=== PATIENT | female | born 1955 | race Caucasian/White ===

== ENCOUNTER → 2017-07-02 11:33 | Outpatient (CLI) | payer MEDICARE, SELFPAY | PROVIDERS: PCP Physician Assistant; Visit Provider Physician Assistant | DX: R68.89 Other general symptoms and signs (principal) | CPT/HCPCS: 87275; 87276 ==

== ENCOUNTER 2017-07-07 15:39 | Observation (INO) ==
--- NOTE | 2017-07-07 16:34 | Emergency Department Note ---
[facility] [place] Disposition Clinical Impression: Pneumonia Qualifiers: Pneumonia type: due to unspecified organism Laterality: right Lung location: lower lobe of lung Qualified Code(s): J18.1 - Lobar pneumonia, unspecified organism Disposition: Admitted As Inpatient Condition on Discharge: Fair Referrals: Genia Luevano [Primary Care Provider] - Medical Decision Making - Jesús Inquiry Pt receiving controlled substance: No Vital Signs: 07/07/17 16:06 07/07/17 17:49 07/07/17 17:50 Temperature 98.7 F Temperature Source Oral Pulse Rate 82 81 Pulse Rate [Left Radial] 114 H Respiratory Rate 18 Blood Pressure [Right Arm] 133/85 Blood Pressure Mean [Right Arm] 101 02 Sat by Pulse Oximetry 97 Oxygen Delivery Method Room Air - Lab Data Lab results reviewed: Yes: I reviewed the patient's lab results. Lab Results 07/07/17 16:55: WBC 10.0, RBC 3.77 L, Hgb 12.5, Hct 34.0 L, MCV 90.2, MCH 33.3 H , MCHC 36.9 H, RDW 12.7, Plt Count 241, MPV 7.5, Neut % (Auto) 75.3, Lymph % ( Auto) 16.3, [place] % (Auto) 7.9, Eos % (Auto) 0.2, Baso % (Auto) 0.2, Neut # (Auto ) 7.5, Lymph # (Auto) 1.6, [place] # (Auto) 0.8, Eos # (Auto) 0.0, Baso # (Auto) 0.0 07/07/17 16:55: Sodium 135 L, Potassium 4.5, Chloride 98, Carbon Dioxide 27, Anion Gap 14.5, BUN 11, Creatinine 1.00, Estimated Creat Clear 70, Estimated GFR 56 L, Est GFR ( Amer) 68, Glucose 98, Calcium 9.7, Total Bilirubin 0.4, AST 24, ALT 33, Alkaline Phosphatase 196 H, Total Protein 8.0, Albumin 2.9 L, Globulin 5.1 H, Albumin/Globulin Ratio 0.6 L 07/07/17 16:55: Lactic Acid 1.2 07/07/17 16:55: Urine Color Dark yellow, Urine Appearance Turbid, Urine pH 5.5, Ur Specific [place] 1.025, Urine Protein 2+, Urine Glucose (UA) Negative, Urine Ketones Small, Urine Blood 3+, Urine Nitrate Negative, Urine Bilirubin 2+ A, Urine Urobilinogen 0.2, Ur Leukocyte Esterase Negative, Strep Scn Rapid Clinic Negative Result diagrams: 07/07/17 16:55 07/07/17 16:55 Orders (Tests/Meds): ED MEDICATIONS Discontinued Medications Generic Name Dose Route Start Last Admin Trade Name Freq PRN Reason Stop Dose Admin Albuterol/Ipratropium 3 ml 07/07/17 17:32 07/07/17 17:49 Duoneb 3ml Neb IH 07/07/17 17:33 3 ml ONCE ONE Administration ORDERS Category Date Time Status Blood Culture Stat Micro 07/07/17 16:55 Received Strep Screen Confirmation Stat Micro 07/07/17 16:55 Received - Radiology Data #1 Image(s): Chest Image Reviewed: Yes I reviewed the patient's radiology image, Yes I have reviewed radiologist's interpretation RLL pneumonia [facility] [place] HPI - General Stated complaint: fever for 8 days Time Seen by Provider: 07/07/17 16:20 Mode of Arrival: Family Vehicle Source of Information: Patient Limitations: No Limitations Description of Symptoms (Recalled from Triage Doc. by RN): PT STATES SHE HAS HAD FEVER FOR 8 DAYS,BODY ACHES, COUGH, NAUSEA. PT REPORTS SHE SEEN HER PCP ON SATURDAY FLU WAS NEGATIVE SHE WAS TOLD TO FOLLOW UP FOR BLOOD WORK AND CHEST XRAY WHICH ALL CAME BACK FINE BUT IS NOT FEELING ANY BETTER. HEENT Symptoms (Recalled from RN notes): Yes (FEVER BODY ACHES) Resp Symptoms (Recalled from RN notes): Yes (COUGH) Skin Symptoms (Recalled from RN notes): No MS Symptoms (Recalled from RN notes): No Functional Status (Recalled from RN notes): NA - History of Present Illness Provider Complaint: Patient states that she has had a fever X 8 days. She saw PCP on 07/02 and was tested for flu, which was negative. Saw her again on 07/04 and had labs and CXR and was told they were ok. Says they told her it was likely just a virus, but she continues to run a fever up to 103.8 and has body aches, chills. Some cough and SOA. Throat feels dry. No vomiting or diarrhea. Mild dysuria. Onset (ago): day(s) (8) Location: chest Relieving factors: none Exacerbating factors: none Associated symptoms: cough, fever/chills, headaches, malaise, shortness of breath Treatments prior to arrival: NSAID - Related Data Home Medications Medication Instructions Recorded Confirmed Lisinopril [Lisinopril 20mg Tab] 20 mg PO DAILY 07/07/17 07/07/17 dilTIAZem HCl [Diltiazem 300mg 300 mg PO DAILY 07/07/17 07/07/17 24Hr ER] raNITIdine HCl [Ranitidine HCl] 300 mg PO DAILY 07/07/17 07/07/17 Allergies Allergy/AdvReac Type Severity Reaction Status Date / Time codeine [CODEINE] Allergy Unknown DIFFICULTY Verified 07/07/17 16:13 BREATHING oxycodone [OXYCODONE] Allergy Unknown DIFFICULTY Verified 07/07/17 16:13 BREATIHNG sumatriptan [SUMATRIPTAN] Allergy Unknown STROKE Verified 07/07/17 16:13 SYMPTOMS - Worker's Comp Is this a Worker's Comp case?: No [facility] History I have reviewed the patient's past medical history: Yes Medical History: Denies:: Cancer, Diabetes Mellitus Type 1, Diabetes Mellitus Type 2, MRSA Laterality Cases: Bilateral: Tonsillectomy Amputation: No Fractures: No - Social History Smoking Status: Never smoker Alcohol Intake: never - Psychiatric History Expresses thoughts of harming self/others: None Suicide Plan Description: No Plan ROS Obtained: Yes All systems reviewed & no additional complaints - Constitutional Constitutional: Reports body ache, Reports chills, Reports fatigue, Reports fever(s), Reports malaise - Respiratory Respiratory: Yes cough, Yes dyspnea - Genitourinary Female Genitourinary: Reports dysuria Physical Exam - General General appearance: alert, in no apparent distress - Head Head exam: atraumatic, normocephalic, normal inspection - Eye Eye exam: Present: normal appearance, PERRL, EOMI - ENT ENT exam: Present: normal exam, normal oropharynx, mucous membranes moist, TM's normal bilaterally, normal external ear exam - Neck Neck exam: Present: normal inspection, full ROM, trachea midline. Absent: meningismus, lymphadenopathy - Chest Chest inspection: Present: normal inspection, symmetric chest wall rise. Absent : tenderness - Respiratory Respiratory exam: Present: accessory muscle use, other (dyspneic with speech). Absent: respiratory distress - Expanded Respiratory Exam Location: Right: rales, Lower: rales - Cardiovascular Cardiovascular exam: Present: normal rhythm, tachycardia. Absent: JVD - Abdominal Exam Abdominal exam: Present: soft, normal bowel sounds. Absent: distention, tenderness, guarding - Extremities Exam Extremities exam: Present: normal inspection, full ROM, normal capillary refill. Absent: calf tenderness - Back Exam Back exam: Present: normal inspection. Absent: tenderness, CVA tenderness (R), CVA tenderness (L) - Neurological Exam Neurological exam: Present: alert, oriented X3 - Psychiatric Psychiatric exam: Present: normal affect, normal mood - Skin Skin exam: Present: warm, dry, intact, normal color - Lymphatic Lymphatic Findings: no adenopathy
[2017-07-07 17:13] LABS: Basophils % 0.2 % (0.1-2.0); Eosinophils % 0.2 % (0.1-12.0); Hemoglobin 12.5 g/dL (12.2-16.2); Lymphocytes # 1.6 K/mm3 (0.7-4.5); Lymphocytes % 16.3 K/mm3 (10-50); Mean Corpuscular HGB Conc 36.9 g/dL (31.8-35.4); Mean Corpuscular Hemoglobin 33.3 pg (27.0-31.2); Mean Corpuscular Volume 90.2 fl (81-99); Mean Platelet Volume 7.5 fl (7.4-10.4); Monocytes # 0.8 K/mm3 (0.1-1.0); Monocytes % 7.9 % (1.7-9.3); Neutrophils # 7.5 K/mm3 (1.8-7.8); Neutrophils % 75.3 % (37.0-80.0); Platelet Count 241 K/mm3 (142-424); Red Blood Count 3.77 M/mm3 (4.20-5.40); Red Cell Distribution Width 12.7 % (11.5-17.5)
[2017-07-07 17:27] LABS: Albumin Level 2.9 gm/dL (3.4-5.0); Albumin/Globulin Ratio 0.6 (1.1-1.8); Anion Gap 14.5 mEq/L (5-15); Bilirubin,Total 0.4 mg/dL (0.2-1.0); Calcium 9.7 mg/dL (8.5-10.1); Globulin 5.1 gm/dl (1.3-3.2); Potassium 4.5 mmoL/L (3.5-5.1)
--- NOTE | 2017-07-07 20:25 | History & Physical Report ---
*Admission Date: 07/07/17 *Chief complaint: Fever *History of present illness: Patient has had fever X 8 days. Has seen PCP twice. Tested negative for flu and was told that CXR and labs were normal. Has continued to run fevers of 103. Is taking Tylenol and Motrin around the clock. Has had sore throat, cough , shortness of air. Has had body aches and chills. No vomiting or diarrhea. CXR in [facility] showed right lower lobe pneumonia. CBC and CMP were normal. Patient was dyspneic with speech, had shaking rigors, and it was decided to admit for IV antibiotics, steroids and breathing treatments. [facility] History Medical History: Reports:: Gastroesophageal Reflux Disease(GERD), Hypertension Denies:: Cancer, Diabetes Mellitus Type 1, Diabetes Mellitus Type 2, MRSA Laterality Cases: Bilateral: Tonsillectomy Amputation: No Fractures: No - *Social History Smoking Status: Never smoker Alcohol Intake: never - Psychiatric History Expresses thoughts of harming self/others: None Suicide Plan Description: No Plan Review of Systems - Constitutional Reports body ache(s), Reports chills, Reports fever(s) - ENT Reports sore throat - *Respiratory Reports cough, Reports shortness of breath, Reports wheezing - *Genitourinary Reports painful urination Meds Home Medications Medication Instructions Recorded Confirmed Type Lisinopril [Lisinopril 20mg Tab] 20 mg PO DAILY 07/07/17 07/07/17 History dilTIAZem HCl [Diltiazem 300mg 300 mg PO DAILY 07/07/17 07/07/17 History 24Hr ER] raNITIdine HCl [Ranitidine HCl] 300 mg PO DAILY 07/07/17 07/07/17 History Allergies Allergy/AdvReac Type Severity Reaction Status Date / Time acetaminophen [From Tylox] Allergy Mild Rash Verified 07/07/17 20:28 codeine [CODEINE] Allergy Unknown DIFFICULTY Verified 07/07/17 16:13 BREATHING oxycodone [OXYCODONE] Allergy Unknown DIFFICULTY Verified 07/07/17 16:13 BREATIHNG sumatriptan [SUMATRIPTAN] Allergy Unknown STROKE Verified 07/07/17 16:13 SYMPTOMS Exam Vital signs and Labs for Last 24 Hours: Temp Pulse Resp BP Pulse Ox 100.2 F H 119 H 22 130/73 95 07/07/17 20:00 07/07/17 20:00 07/07/17 20:00 07/07/17 20:00 07/07/17 20:00 Laboratory Results - last 24 hr 07/07/17 16:55: WBC 10.0, RBC 3.77 L, Hgb 12.5, Hct 34.0 L, MCV 90.2, MCH 33.3 H , MCHC 36.9 H, RDW 12.7, Plt Count 241, MPV 7.5, Neut % (Auto) 75.3, Lymph % ( Auto) 16.3, [place] % (Auto) 7.9, Eos % (Auto) 0.2, Baso % (Auto) 0.2, Neut # (Auto ) 7.5, Lymph # (Auto) 1.6, [place] # (Auto) 0.8, Eos # (Auto) 0.0, Baso # (Auto) 0.0 07/07/17 16:55: Sodium 135 L, Potassium 4.5, Chloride 98, Carbon Dioxide 27, Anion Gap 14.5, BUN 11, Creatinine 1.00, Estimated Creat Clear 70, Estimated GFR 56 L, Est GFR ( Amer) 68, Glucose 98, Calcium 9.7, Total Bilirubin 0.4, AST 24, ALT 33, Alkaline Phosphatase 196 H, Total Protein 8.0, Albumin 2.9 L, Globulin 5.1 H, Albumin/Globulin Ratio 0.6 L 07/07/17 16:55: Lactic Acid 1.2 07/07/17 16:55: Urine Color Dark yellow, Urine Appearance Turbid, Urine pH 5.5, Ur Specific [place] 1.025, Urine Protein 2+, Urine Glucose (UA) Negative, Urine Ketones Small, Urine Blood 3+, Urine Nitrate Negative, Urine Bilirubin 2+ A, Urine Urobilinogen 0.2, Ur Leukocyte Esterase Negative, Strep Scn Rapid Clinic Negative I & O for Last 24 hours: Intake & Output 07/05/17 07/06/17 07/07/17 07/08/17 11:59 11:59 11:59 11:59 Weight 178 lb 15.999 oz - Constitutional mild distress - *Routine HEENT Exam Head: Present: normocephalic, atraumatic Eye: Present: EOMI, PERRL ENT: Present: mucous membranes moist, oropharynx clear, TM's clear bilaterally - *Routine Neck Exam Present: supple, full ROM. Absent: lymphadenopathy, thyromegaly - Routine Chest/Breast/Axilla Exam Chest wall: Absent: tenderness - *Routine Respiratory Exam Present: rales (RLL), respiratory distress (mild - dyspneic with speech), diminished air movement - *Routine Cardiovascular Exam Present: RRR, tachycardia - *Routine Extremities Exam Present: normal capillary refill. Absent: cyanosis, clubbing, edema - *Routine Skin Exam Present: intact, dry. Absent: cyanosis, erythema - *Routine Neurological Exam Present: alert, oriented X3 - Routine Psychiatric Exam Present: normal affect, normal thought process H&P: Result - Labs Labs: Short CBC 07/07/17 Range/Units 16:55 WBC 10.0 (4.8-10.8) K/mm3 Hgb 12.5 (12.2-16.2) g/dL Hct 34.0 L (37.0-47.0) % Plt Count 241 (142-424) K/mm3 BMP 07/07/17 16:55 Sodium 135 L Potassium 4.5 Chloride 98 Carbon Dioxide 27 BUN 11 Creatinine 1.00 Glucose 98 Calcium 9.7 Liver Function 07/07/17 Range/Units 16:55 Total Bilirubin 0.4 (0.2-1.0) mg/dL AST 24 (15-37) U/L ALT 33 (12-78) U/L Alkaline Phosphatase 196 H (46-116) U/L Albumin 2.9 L (3.4-5.0) gm/dL Urine 07/07/17 Range/Units 16:55 Urine Color Dark yellow (Yellow) Urine Appearance Turbid (Clear) Urine pH 5.5 (5.0-8.5) Ur Specific [place] 1.025 (1.005-1.030) Urine Protein 2+ (Negative) Urine Glucose (UA) Negative (Negative) - Imaging and Cardiology Chest x-ray Status: final report (RLL Pneumonia) Assessment and Plan (1) Pneumonia Start date: 07/07/17 Current visit: Yes Status: Acute Qualifiers: Pneumonia type: due to unspecified organism Laterality: right Lung location: lower lobe of lung Qualified Code(s): J18.1 - Lobar pneumonia, unspecified organism Category: Medical Code(s): J18.9 - Pneumonia, unspecified organism - Assessment and plan all Dx Assessment and Plan for all problems:: Admit for IV antibiotics, steroids, breathing treatments and observation due to mild respiratory distress
[2017-07-08 07:19] LABS: Basophils % 0.1 % (0.1-2.0); Lymphocytes # 0.6 K/mm3 (0.7-4.5); Mean Corpuscular Hemoglobin 29.1 pg (27.0-31.2); Monocytes # 0.1 K/mm3 (0.1-1.0)
[2017-07-08 07:28] LABS: Eosinophils % 0.8 % (0.1-12.0); Hematocrit 35.6 % (37.0-47.0); Lymphocytes % 10.3 K/mm3 (10-50); Mean Corpuscular Volume 90.8 fl (81-99); Mean Platelet Volume 7.8 fl (7.4-10.4); Monocytes % 2.5 % (1.7-9.3); Neutrophils # 4.8 K/mm3 (1.8-7.8); Neutrophils % 86.3 % (37.0-80.0); Platelet Count 217 K/mm3 (142-424); Red Blood Count 3.92 M/mm3 (4.20-5.40); Red Cell Distribution Width 12.7 % (11.5-17.5); White Blood Count 5.6 K/mm3 (4.8-10.8)
[2017-07-08 07:30] LABS: Anion Gap 15.8 mEq/L (5-15); Potassium 3.8 mmoL/L (3.5-5.1)
[2017-07-08 07:57] LABS: Hemoglobin 11.4 g/dL (12.2-16.2)
--- NOTE | 2017-07-08 08:28 | Pharmacy Consult Notes ---
[facility] VTE Monitoring - Patient Demographics Admission date: 07/07/17 Report Date: 07/08/17 Time: 08:28 Allergies/Adverse Reactions: Patient Allergies acetaminophen [From Tylox] Allergy (Mild, Verified 07/07/17 20:28) Rash codeine [CODEINE] Allergy (Unknown, Verified 07/07/17 16:13) DIFFICULTY BREATHING oxycodone [OXYCODONE] Allergy (Unknown, Verified 07/07/17 16:13) DIFFICULTY BREATIHNG sumatriptan [SUMATRIPTAN] Allergy (Unknown, Verified 07/07/17 16:13) STROKE SYMPTOMS Height: 1.6 m Weight: 80.059 kg Patient Problems: Current Active Problems Pneumonia (Acute) - VTE Risk Labs: VTE Related Lab Results Hgb 11.4 g/dL (12.2-16.2) L 07/08/17 06:59 Hct 35.6 % (37.0-47.0) L 07/08/17 06:59 Plt Count 217 K/mm3 (142-424) 07/08/17 06:59 BUN 11 mg/dL (7-18) 07/08/17 06:54 Creatinine 0.78 mg/dL (0.55-1.02) D 07/08/17 06:54 Estimated Creat Clear 72 mL/min (0-300) 07/08/17 06:54 VTE Score: 5 VTE Risk Level: Low Risk - Prophylaxis VTE Prophylaxis Ordered?: Yes Types of VTE Prophylaxis: TEDS Knee High Location of Applied Device: Bilateral Lower Extremeties - VTE Diagnosis Confirmed Treatment or plan recommended: Continue Current Treatment
[2017-07-08 09:05] LABS: Lymphocytes % 9 % (10-50); Monocytes % 3 % (2-9); Neutrophils % 83 % (42-76); RBC Morphology Normal; Total Cells Counted 100
--- NOTE | 2017-07-08 09:17 | Progress Note ---
Internal Medicine - PN: Subj *Date: 07/08/17 *Time: 09:15 Interval history: feels better - doing better - some tachycardia but not irreg and no chest pain Exam Vital signs and Labs for Last 24 Hours: Temp Pulse Resp BP Pulse Ox 98.7 F 121 H 18 170/93 93 L 07/08/17 07:39 07/08/17 07:39 07/08/17 07:39 07/08/17 07:39 07/08/17 07:39 Laboratory Results - last 24 hr 07/07/17 16:55: WBC 10.0, RBC 3.77 L, Hgb 12.5, Hct 34.0 L, MCV 90.2, MCH 33.3 H , MCHC 36.9 H, RDW 12.7, Plt Count 241, MPV 7.5, Neut % (Auto) 75.3, Lymph % ( Auto) 16.3, [place] % (Auto) 7.9, Eos % (Auto) 0.2, Baso % (Auto) 0.2, Neut # (Auto ) 7.5, Lymph # (Auto) 1.6, [place] # (Auto) 0.8, Eos # (Auto) 0.0, Baso # (Auto) 0.0 07/07/17 16:55: Sodium 135 L, Potassium 4.5, Chloride 98, Carbon Dioxide 27, Anion Gap 14.5, BUN 11, Creatinine 1.00, Estimated Creat Clear 70, Estimated GFR 56 L, Est GFR ( Amer) 68, Glucose 98, Calcium 9.7, Total Bilirubin 0.4, AST 24, ALT 33, Alkaline Phosphatase 196 H, Total Protein 8.0, Albumin 2.9 L, Globulin 5.1 H, Albumin/Globulin Ratio 0.6 L 07/07/17 16:55: Lactic Acid 1.2 07/07/17 16:55: Urine Color Dark yellow, Urine Appearance Turbid, Urine pH 5.5, Ur Specific [place] 1.025, Urine Protein 2+, Urine Glucose (UA) Negative, Urine Ketones Small, Urine Blood 3+, Urine Nitrate Negative, Urine Bilirubin 2+ A, Urine Urobilinogen 0.2, Ur Leukocyte Esterase Negative, Strep Scn Rapid Clinic Negative 07/08/17 06:54: Sodium 136, Potassium 3.8, Chloride 100, Carbon Dioxide 24, Anion Gap 15.8 H, BUN 11, Creatinine 0.78 D, Estimated Creat Clear 72, Estimated GFR 74, Est GFR ( Amer) 90 D, Glucose 232 H D 07/08/17 06:59: WBC 5.6 D, RBC 3.92 L, Hgb 11.4 L, Hct 35.6 L, MCV 90.8, MCH 29.1, MCHC 32.0, RDW 12.7, Plt Count 217, MPV 7.8, Neut % (Auto) 86.3 H, Lymph % (Auto) 10.3, [place] % (Auto) 2.5, Eos % (Auto) 0.8, Baso % (Auto) 0.1, Neut # ( Auto) 4.8, Lymph # (Auto) 0.6 L, [place] # (Auto) 0.1, Eos # (Auto) 0.0, Baso # ( Auto) 0.0, Total Counted 100, Neutrophils % (Manual) 83 H, Band Neutrophils % 5.0, Lymphocytes % (Manual) 9 L, Monocytes % (Manual) 3, Platelet Estimate Normal, RBC Morphology Normal I & O for Last 24 hours: Intake & Output 07/05/17 07/06/17 07/07/17 07/08/17 11:59 11:59 11:59 11:59 Intake Total 1040 / 1040 Balance 1040 / 1040 Weight 176 lb 8 oz - Constitutional no acute distress - *Routine HEENT Exam Head: Present: normocephalic Eye: Present: EOMI, PERRL ENT: Present: mucous membranes dry - *Routine Neck Exam Present: supple - *Routine Respiratory Exam Present: CTA bilaterally - *Routine Cardiovascular Exam Present: murmur, tachycardia - *Routine Abdominal Exam Present: soft - *Routine Extremities Exam Present: cyanosis. Absent: calf tenderness - *Routine Skin Exam Present: intact - *Routine Neurological Exam Present: alert, oriented X3, CN II-XII intact - Routine Psychiatric Exam Present: normal affect Assessment and Plan (1) Pneumonia Start date: 07/07/17 Current visit: Yes Status: Acute Qualifiers: Pneumonia type: due to unspecified organism Laterality: right Lung location: lower lobe of lung Qualified Code(s): J18.1 - Lobar pneumonia, unspecified organism Category: Medical Code(s): J18.9 - Pneumonia, unspecified organism
[2017-07-08 09:35] LABS: Coronavirus 229E Not Detected (NotDetected); Coronavirus NL63 Not Detected (NotDetected); Coronavirus OC43 Not Detected (NotDetected); Coronovirus HKU1,PCR Not Detected (NotDetected)
[2017-07-08 09:54] LABS: T4 (Thyroxine) 9.9 ug/dl (4.7-13.3); Thyroid Stimulating Hormone 0.14 uIU/ml (0.358-3.740)
[2017-07-09 07:43] VITALS: BP 140/85
--- NOTE | 2017-07-09 08:03 | Discharge Summary ---
General - General Admission date:: 07/07/17 Discharge date: 07/09/17 HPI HPI: Patient has had fever X 8 days. Has seen PCP twice. Tested negative for flu and was told that CXR and labs were normal. Has continued to run fevers of 103. Is taking Tylenol and Motrin around the clock. Has had sore throat, cough , shortness of air. Has had body aches and chills. No vomiting or diarrhea. CXR in [facility] showed right lower lobe pneumonia. CBC and CMP were normal. Patient was dyspneic with speech, had shaking rigors, and it was decided to admit for IV antibiotics, steroids and breathing treatments. Hospital Course Hospital Course: pt with slow improvement on steroids and abx - no fever and vss and tolerating diet - Objective Vital signs: Temp Pulse Resp BP Pulse Ox 98.1 F 91 H 18 140/85 96 07/09/17 07:42 07/09/17 07:42 07/09/17 07:42 07/09/17 07:42 07/09/17 07:42 no acute distress - *Routine HEENT Exam Head: Present: normocephalic Eye: Present: EOMI, PERRL ENT: Present: mucous membranes dry - *Routine Neck Exam Present: supple - *Routine Respiratory Exam Present: CTA bilaterally - *Routine Cardiovascular Exam Present: RRR, murmur - *Routine Abdominal Exam Present: soft - *Routine Extremities Exam Absent: edema - *Routine Skin Exam Present: intact - *Routine Neurological Exam Present: alert, oriented X3, CN II-XII intact - Routine Psychiatric Exam Present: normal affect Results Labs on day of discharge: Labs from last 24 hours 07/08/17 07/08/17 07/08/17 09:20 06:59 06:59 Total Counted Neutrophils % (Manual) Band Neutrophils % Lymphocytes % (Manual) Monocytes % (Manual) Platelet Estimate RBC Morphology Hemoglobin A1c 5.8 Troponin I < 0.02 TSH 0.14 L Thyroxine (T4) 9.9 Chlamy pneumoniae PCR Not detected Adenovirus (PCR) Not detected B.parapertussis DNA PCR Not detected Coronavirus OC43 (PCR) Not detected Coronavirus HKU1 (PCR) Not detected Coronavirus 229E (PCR) Not detected Coronavirus NL63 (PCR) Not detected Human Metapneumovir PCR Not detected Influenza A (H1) PCR Not detected Influ A (H1N1/09) PCR Not detected Influenza A (H3) PCR Not detected Influenza Type A (PCR) Not detected Influenza Type B (PCR) Not detected M. pneumoniae (PCR) Not detected Parainfluenza 1 (PCR) Not detected Parainfluenza 2 (PCR) Not detected Parainfluenza 3 (PCR) Not detected Parainfluenza 4 (PCR) Not detected RSV (PCR) Not detected Entero/Rhino (PCR) Not detected 07/08/17 06:59 Total Counted 100 Neutrophils % (Manual) 83 H Band Neutrophils % 5.0 Lymphocytes % (Manual) 9 L Monocytes % (Manual) 3 Platelet Estimate Normal RBC Morphology Normal Hemoglobin A1c Troponin I TSH Thyroxine (T4) Chlamy pneumoniae PCR Adenovirus (PCR) B.parapertussis DNA PCR Coronavirus OC43 (PCR) Coronavirus HKU1 (PCR) Coronavirus 229E (PCR) Coronavirus NL63 (PCR) Human Metapneumovir PCR Influenza A (H1) PCR Influ A (H1N1/09) PCR Influenza A (H3) PCR Influenza Type A (PCR) Influenza Type B (PCR) M. pneumoniae (PCR) Parainfluenza 1 (PCR) Parainfluenza 2 (PCR) Parainfluenza 3 (PCR) Parainfluenza 4 (PCR) RSV (PCR) Entero/Rhino (PCR) DS: Diagnosis - Discharge Diagnosis (1) Pneumonia Status: Acute Discharge Plan - Patient Discharge Instructions ACTIVITY: Continue current activity DIET: continue same diet - Follow up Plan Disposition: Home, Self-Prison Medications: Home Medications Medication Instructions Recorded Confirmed Type Lisinopril [Lisinopril 20mg Tab] 20 mg PO DAILY 07/07/17 07/07/17 History Melatonin 1 mg PO HS 07/07/17 07/07/17 History dilTIAZem HCl [Diltiazem 300mg 300 mg PO DAILY 07/07/17 07/07/17 History 24Hr ER] raNITIdine HCl [Ranitidine HCl] 300 mg PO BID 07/07/17 07/07/17 History Polyethylene Glycol 3350 [Miralax 17 gm PO DAILY 07/08/17 07/08/17 History 17gm Packet] Prescriptions/Medication Reconciliation: New Azithromycin [Zithromax 250mg tab] 250 mg PO DIRECTED #6 tab Continue Lisinopril [Lisinopril 20mg Tab] 20 mg PO DAILY dilTIAZem HCl [Diltiazem 300mg 24Hr ER] 300 mg PO DAILY Melatonin 1 mg PO HS Polyethylene Glycol 3350 [Miralax 17gm Packet] 17 gm PO DAILY raNITIdine HCl [Ranitidine HCl] 300 mg PO BID
== END 2017-07-09 13:10 | disposition home or self-care (01) ==
LOC: UTC 15:39 → 2ND 15:39
PROVIDERS: ADMIT Emergency Medicine; ATTEND Emergency Medicine
CPT/HCPCS: 36415; 71020; 71046; 80048; 80053; 81003; 83036; 83605; 84436; 84443; 84484; 85007; 85025; 87040; 87486; 87581; 87633; 87798; 87880; 94640; 94761; 99203; G0378; J0456

== ENCOUNTER → 2017-08-15 08:33 | Outpatient (POV) | payer MEDICARE, SELFPAY | PROVIDERS: Visit Provider Dermatology | DX: Z00.00 Encounter for general adult medical examination without abnormal findings (principal) ==

== ENCOUNTER → 2017-10-22 09:39 | Outpatient (CLI) | payer MEDICARE, SELFPAY ==
--- NOTE | 2017-10-22 09:43 | XR_ITS ---
XR DEXA axial skeleton HISTORY: ITS.REASON: POST MENOPAUSAL ORDERING PHYSICIAN: Genia Luevano PATIENT AGE: 62 years COMPARISON: None FINDINGS: The BMD measured at the Right femoral neck is 0.855 g/cm squared with a T score of -1.3. This is considered Osteopenic according to the World Health Organization criteria. Fracture risk is Moderate. Treatment is advised. IMPRESSION: Osteopenia with moderate fracture risk. Suggest treatment and follow-up exam in October 2019
== END ==
PROVIDERS: Family Provider Family Medicine; PCP Physician Assistant; Visit Provider Physician Assistant
DX: Z13.820 Encounter for screening for osteoporosis (principal); Z78.0 Asymptomatic menopausal state
CPT/HCPCS: 77080

== ENCOUNTER → 2018-02-10 11:08 | Outpatient (CLI) | payer MEDICARE, SELFPAY ==
--- NOTE | 2018-02-10 11:14 | XR_ITS ---
XR sinus min 3V COMPARISON: None HISTORY: Symptoms of chronic sinusitis TECHNIQUE: Mccormack view, Ordonez view and lateral view FINDINGS: There is moderate diffuse mucoperiosteal thickening right maxillary sinus and mild mucoperiosteal thickening left Sinus. The nasal septum is in the midline. The ethmoid sinuses sphenoid sinus and frontal sinuses are clear, the frontal sinuses are somewhat hypoplastic. IMPRESSION: Findings suggesting chronic inflammatory changes of the maxillary sinuses
== END ==
PROVIDERS: PCP Physician Assistant; Visit Provider Physician Assistant
DX: R09.89 Other specified symptoms and signs involving the circulatory and respiratory systems (principal)
CPT/HCPCS: 70220

== ENCOUNTER → 2018-04-22 09:09 | Outpatient (POV) | payer MEDICARE, SELFPAY | PROVIDERS: Visit Provider Dermatology | DX: Z00.00 Encounter for general adult medical examination without abnormal findings (principal) ==

== ENCOUNTER → 2018-09-22 17:07 | Outpatient (CLI) | payer MEDICARE, SELFPAY ==
[2018-09-22 18:11] LABS: Basophils # 0.1 K/mm3 (0-0.2); Basophils % 0.6 % (0.1-2.0); Eosinophils # 0.1 K/mm3 (0.0-0.4); Eosinophils % 1.8 % (0.1-12.0); Hematocrit 41.8 % (37.0-47.0); Hemoglobin 13.2 g/dL (12.2-16.2); Lymphocytes # 2.4 K/mm3 (0.7-4.5); Lymphocytes % 34.2 % (10-50); Mean Corpuscular HGB Conc 31.6 g/dL (31.8-35.4); Mean Corpuscular Hemoglobin 29.1 pg (27.0-31.2); Mean Platelet Volume 8.3 fl (7.4-10.4); Monocytes # 0.5 K/mm3 (0.1-1.0); Monocytes % 7.6 % (1.7-9.3); Neutrophils % 55.8 % (37.0-80.0); Platelet Count 321 K/mm3 (142-424); Red Blood Count 4.55 M/mm3 (4.20-5.40); Red Cell Distribution Width 13.3 % (11.5-17.5); White Blood Count 7.1 K/mm3 (4.8-10.8)
[2018-09-22 18:29] LABS: Alanine Aminotransferase 25 U/L (12-78); Albumin/Globulin Ratio 1.2 (1.1-1.8); Alkaline Phosphatase 119 U/L (46-116); Anion Gap 12.6 mEq/L (5-15); Aspartate Amino Transferase 13 U/L (15-37); Bilirubin,Total 0.3 mg/dL (0.2-1.0); Blood Urea Nitrogen 15 mg/dL (7-18); Calcium 9.4 mg/dL (8.5-10.1); Carbon Dioxide 27 mmol/L (21.0-32.0); Chloride 105 mmol/L (98-107); Creatinine,Serum 1.12 mg/dL (0.55-1.02); Estimated Glomerular Filt Rate 49 ml/min (>60); GFR (African American) 59 ML/MIN (>60); Globulin 3.4 gm/dl (1.3-3.2); Glucose 95 mg/dL (74-106); Potassium 4.6 mmoL/L (3.5-5.1); Sodium 140 mmol/L (136-145); T4 (Thyroxine) 11.1 ug/dl (4.7-13.3); Thyroid Stimulating Hormone 0.67 uIU/ml (0.358-3.740); Total Protein,Serum 7.4 gm/dL (6.4-8.2)
[2018-09-24 10:04] LABS: Vitamin D 25 Hydroxy 21.8 ng/mL (30.0-100.0)
== END ==
PROVIDERS: Visit Provider Physician Assistant
DX: R53.83 Other fatigue (principal); E55.9 Vitamin D deficiency, unspecified
CPT/HCPCS: 80053; 82652; 84436; 84443; 85025

== ENCOUNTER 2019-08-13 14:11 | Emergency (ER) | payer MEDICARE, SELFPAY ==
[2019-08-13 14:30] VITALS: BP 142/75; PULSE 79; RESP 19; TEMP 36.6; O2SAT 98; BMI 33.3
--- NOTE | 2019-08-13 14:30 | CA_ITS ---
APPROVED REPORT Bilateral Lower Extremity Venous Study for DVT. Pedicurist: SALIMA Indications Lower Extremity Edema: Left swelling and redness of left lower extremity Vein Imaging GAS (R): Compressible CFV (L): compressive, spontaneous, phasic, augmentation SFJ (L): compressive, spontaneous, phasic, augmentation FEM (L): compressive, spontaneous, phasic, augmentation POP (L): compressive, spontaneous, phasic, augmentation PTV (L): Compressible GSV (L): Compressible Peroneals (L):Not Visualized Findings No evidence of DVT or superficial thrombophlebitis in the veins scanned of the left lower extremity. Conclusion No evidence of DVT or superficial thrombophlebitis in the veins scanned of the left lower extremity. Electronically signed by : Amol Sigala MD 08/14/2019 11:32:53
--- NOTE | 2019-08-13 14:55 | HMH.EDUTC ---
[facility] [place] Disposition Clinical Impression: Cellulitis Qualifiers: Site of cellulitis: extremity Site of cellulitis of extremity: lower extremity Laterality: left Qualified Code(s): L03.116 - Cellulitis of left lower limb Disposition: Home, Self-Care Condition on Discharge: Good Instructions: Cellulitis, DI for Cellulitis -- Adult, Cephalexin Additional Instructions: Take medication as prescribed *Follow up with Family doctor if no improvement or any worsening of symptoms Return if needed Straight to ER if any life threatening symptoms Make sure to follow up with Family doctor in the next 48-72 hours if no improvement Prescriptions: cephALEXin [Keflex 500mg Cap] 500 mg PO Q6H 7 Days #28 cap Transmission Status: Pending to [facility] #[id number] Referrals: Ko Pereira MD [Primary Care Provider] - As needed Time of Disposition: 15:15 Medical Decision Making - Jesús Inquiry Pt receiving controlled substance: No Jesús was queried for this patient: No Vital Signs: 08/13/19 14:30 Temperature 97.8 F Temperature Source Oral Pulse Rate [Right Brachial] 79 Respiratory Rate 19 Blood Pressure [Right Arm] 142/75 H Blood Pressure Mean [Right Arm] 97 Blood Pressure Source [Right Arm] Automatic Cuff Blood Pressure Position [Right Arm] Sitting 02 Sat by Pulse Oximetry 98 Oxygen Delivery Method Room Air - US Data US Images: Lower Extremity, Other (venous doppler lower left extremity) ED US Reviewed: Yes: I have reviewed the patient's US results, I have viewed radiologist's interpretation [facility] [place] HPI - General Stated complaint: left leg red and swollen, no accident Time Seen by Provider: 08/13/19 14:55 Mode of Arrival: Ambulatory Source of Information: Patient Limitations: No Limitations Description of Symptoms (Recalled from Triage Doc. by RN): PATIENT C/O SWELLING, WARMTH, AND TENDERNESS TO LEFT LEG X 1 MONTH. SHE STATES SHE WAS TREATED BY HER PCP WITH A FLUID PILL , HOWEVER HER LEG IS NO BETTER HEENT Symptoms (Recalled from RN notes): No Resp Symptoms (Recalled from RN notes): No Skin Symptoms (Recalled from RN notes): Yes MS Symptoms (Recalled from RN notes): Yes Functional Status (Recalled from RN notes): WNL - History of Present Illness Provider Complaint: Patient states that she has been having problems for over a monthe with her legs swelling and looking red at times States that she has seen PCP several times and was given a fluid pill to help with the swelling and fluid build up States that for last several days she has noticed that her left leg is looking red like it has a rash on it and redness on the back of her right leg States that the left leg has felt warm and tender when touched States that she talked to her PCP and they told her to come here and get checked for Blood Clot - Related Data Home Medications Medication Instructions Recorded Confirmed Fluoxetine HCl 40 mg PO DAILY 08/13/19 08/13/19 Loratadine [Allergy Relief] 10 mg PO DAILY 08/13/19 08/13/19 Previous Rx's Medication Instructions Recorded cholecalciferol (vitamin D3) 25 1,000 unit PO DAILY #90 cap 04/28/19 mcg (1,000 unit) capsule polyethylene glycol 3350 17 gram 17 g PO DAILY #30 each 06/08/19 oral powder packet lisinopril 20 mg tablet 20 mg PO DAILY #90 tab 07/27/19 omeprazole 20 mg capsule,delayed 20 mg PO DAILY #90 cap 08/03/19 release cephALEXin [Keflex 500mg Cap] 500 mg PO Q6H 7 Days #28 cap 08/13/19 Allergies Allergy/AdvReac Type Severity Reaction Status Date / Time acetaminophen [From Tylox] Allergy Mild Rash Verified 07/20/19 15:41 codeine [CODEINE] Allergy Unknown DIFFICULTY Verified 07/20/19 15:41 BREATHING oxycodone [OXYCODONE] Allergy Unknown DIFFICULTY Verified 07/20/19 15:41 BREATIHNG sumatriptan [SUMATRIPTAN] Allergy Unknown STROKE Verified 07/20/19 15:41 SYMPTOMS - Worker's Comp Is this a Worker's Comp case?: No [facility] History - Hepatitis A Screen Drug use hi
[2019-08-13 15:17] VITALS: BP 142/75; PULSE 79; RESP 19; TEMP 36.6; O2SAT 98
== END 2019-08-13 15:20 | disposition home or self-care (01) ==
PROVIDERS: Emergency Provider Nurse Practitioner; PCP Emergency Medicine
DX: L03.116 Cellulitis of left lower limb (principal); I10 Essential (primary) hypertension; K21.9 Gastro-esophageal reflux disease without esophagitis; Z88.5 Allergy status to narcotic agent; Z90.09 Acquired absence of other part of head and neck
CPT/HCPCS: 93971; 99201

== ENCOUNTER 2019-09-03 18:01 | Emergency (ER) | payer MEDICARE, SELFPAY ==
[2019-09-03 18:19] VITALS: BP 134/78; PULSE 70; RESP 16; TEMP 36.8; O2SAT 98; BMI 33.6
[2019-09-03 18:37] LABS: Microscopic, Urine URINE MICROSCOPIC (MICROSCOPIC)
[2019-09-03 18:40] LABS: Appearance,Urine CLOUDY (Clear); Bilirubin,Urine Negative (Negative); Blood, Urine 3+ (Negative); Color,Urine YELLOW (Yellow); Glucose,Urine (UA) Negative (Negative); Ketones,Urine Negative (Negative); Leukocyte Esterase,Urine 3+ (Negative); Nitrate,Urine Negative (Negative); Protein,Urine Negative (Negative); Specific Gravity, Urine <= 1.005 (1.005-1.030); Urobilinogen,Urine 0.2 EU/dl (0.2)
--- NOTE | 2019-09-03 18:43 | HMH.EDUTC ---
[facility] [place] Disposition Clinical Impression: UTI (urinary tract infection) Qualifiers: Urinary tract infection type: site unspecified Hematuria presence: with hematuria Qualified Code(s): N39.0 - Urinary tract infection, site not specified Disposition: Home, Self-Care Condition on Discharge: Good Instructions: Urinary Tract Infection, DI for Urinary Tract Infection (UTI) Additional Instructions: Drink plenty of fluids. Take tylenol or ibuprofen for pain or fever. Take the medications as directed. Follow up with your regular doctor. GO TO THE ER FOR ANY WORSENING SYMPTOMS The pyridium will make your urine turn orange, this is an expected side effect. It will stain your clothes if it comes into contact with them. Prescriptions: Ondansetron [Zofran 4mg ODT] 4 mg PO Q8HP PRN #20 tab.rapdis PRN Reason: Nausea Transmission Status: Pending to [facility] #[id number] Sulfamethoxazole/Trimethoprim [Bactrim DS tablet] 1 each PO BID 7 Days #14 tab Transmission Status: Pending to [facility] # Phenazopyridine HCl [Pyridium 200mg Tablet] 200 pow PO TID #6 tab Transmission Status: Pending to [facility] #[id number] Referrals: Dilma Pearson PA [Primary Care Provider] - Time of Disposition: 18:47 Medical Decision Making - Medical Records Medical records reviewed: No: I reviewed the patient's medical records. - Jesús Inquiry Pt receiving controlled substance: No Vital Signs: 09/03/19 18:19 Temperature 98.2 F Temperature Source Oral Pulse Rate [Right] 70 Respiratory Rate 16 Blood Pressure [Right Arm] 134/78 Blood Pressure Mean [Right Arm] 96 Blood Pressure Source [Right Arm] Automatic Cuff Blood Pressure Position [Right Arm] Sitting 02 Sat by Pulse Oximetry 98 Oxygen Delivery Method Room Air - Lab Data Lab results reviewed: Yes: I reviewed the patient's lab results. Lab Results 09/03/19 18:30: Urine Color Yellow, Urine Appearance Cloudy, Urine pH 6.0, Ur Specific [place] <= 1.005, Urine Protein Negative, Urine Glucose (UA) Negative, Urine Ketones Negative, Urine Blood 3+, Urine Nitrate Negative, Urine Bilirubin Negative, Urine Urobilinogen 0.2, Ur Leukocyte Esterase 3+ A Orders (Tests/Meds): ORDERS Category Date Time Status UA [Urinalysis and Microscopic] Stat Lab 09/03/19 18:30 Results Urine Culture Stat Micro 09/03/19 18:30 Received [facility] [place] HPI - General Stated complaint: kidney infection Time Seen by Provider: 09/03/19 18:43 Mode of Arrival: Ambulatory Source of Information: Patient Limitations: No Limitations Description of Symptoms (Recalled from Triage Doc. by RN): pt c/o urinary frequency, burning, so lower back pain. Advises it staretd a couple of days ago and has gotten worse HEENT Symptoms (Recalled from RN notes): No Resp Symptoms (Recalled from RN notes): No Skin Symptoms (Recalled from RN notes): No MS Symptoms (Recalled from RN notes): No Functional Status (Recalled from RN notes): na - History of Present Illness Provider Complaint: She c/o urinary frequency and dysuria for the past 2 days. - Related Data Home Medications Medication Instructions Recorded Confirmed Fluoxetine HCl 40 mg PO DAILY 08/13/19 08/20/19 Loratadine [Allergy Relief] 10 mg PO DAILY 08/13/19 08/20/19 cholecalciferol (vitamin D3) 25 1,000 unit PO DAILY cap 08/20/19 mcg (1,000 unit) capsule diltiazem HCl 300 mg PO 08/20/19 08/20/19 capsule,extended release 24 hr furosemide 20 mg tablet 20 mg PO DAILY PRN tab 08/20/19 08/20/19 Previous Rx's Medication Instructions Recorded polyethylene glycol 3350 17 gram 17 g PO DAILY #30 each 06/08/19 oral powder packet lisinopril 20 mg tablet 20 mg PO DAILY #90 tab 07/27/19 omeprazole 20 mg capsule,delayed 20 mg PO DAILY #90 cap 08/03/19 release clindamycin HCL [Clindamycin HCl 300 mg PO Q8 7 Days #21 cap 08/13/19 300mg Cap] furosemide 40 mg tablet 40 mg PO DAILY #30 tab 08/20/19 vamshi
[2019-09-03 18:55] VITALS: BP 0/0; PULSE 84; RESP 16; TEMP 36.9; O2SAT 98
[2019-09-03 19:02] LABS: Bacteria,Urine 1+ /lpf; WBC,Urine 20-50 #/hpf (0-3)
== END 2019-09-03 18:56 | disposition home or self-care (01) ==
PROVIDERS: Emergency Provider Nurse Practitioner Family; PCP Physician Assistant
DX: N30.00 Acute cystitis without hematuria (principal); K21.9 Gastro-esophageal reflux disease without esophagitis; I10 Essential (primary) hypertension; Z90.09 Acquired absence of other part of head and neck; Z90.49 Acquired absence of other specified parts of digestive tract; Z79.899 Other long term (current) drug therapy
CPT/HCPCS: 81001; 87086; 87088; 87186; 99201

== ENCOUNTER → 2019-09-10 12:48 | Outpatient (CLI) | payer MEDICARE, SELFPAY ==
--- NOTE | 2019-09-10 12:56 | CT_ITS ---
Procedure: CT ANGIO LE LT CLINICAL HISTORY: Swelling left lower extremity Swelling bilateral lower extremities, pain COMPARISON: No exams were available for comparison TECHNIQUE: IV Contrast: 100ml Optiray 350 Axial images obtained with sagittal and coronal reformats. All CT scans at the facility use one or more dose reduction, viz: automated exposure control, ma/kV adjustment per patient size (including targeted exams where dose is matched to indication, i.e. head), or iterative reconstruction technique. FINDINGS: There are scattered atheromatous changes of the aorta and iliac vessels with no significant stenosis or aneurysm. Right lower extremity runoff: No significant stenosis, occlusion, or aneurysm is evident. There is 3 vessel runoff to the ankle. Left lower extremity runoff: No significant stenosis, occlusion, or aneurysm. There is 3 vessel runoff to the ankle. Pertinent non vascular findings: Prior cholecystectomy. Moderate amount of retained colonic feces. The spleen has a lobular contour which is nonspecific. There is cortical scarring of both kidneys.. There are 2 small right renal arteries neither 1 of which are very well demonstrated. Cannot exclude underlying renal artery stenosis. There is a small right inguinal hernia containing fat. There are mild osteoarthritic changes of the hips. There are postsurgical changes of the lumbar spine. The urinary bladder appears thickened but could be due to nondistention. IMPRESSION: 1. No significant stenosis, occlusion, or aneurysm of the aorta, iliac vessels, or bilateral lower extremity runoff vessels. 2. Other nonacute findings as described above. Dictated by: Amol Sigala MD 09/11/2019 10:22 Electronically signed by Amol Sigala MD in [place] 09/11/2019 10:22
[2019-09-10 13:12] LABS: Chloride 98 mmol/L (98-107); Potassium 5.1 mmoL/L (3.5-5.1); Sodium 134 mmol/L (136-145)
[2019-09-10 13:15] LABS: Anion Gap 16.1 mEq/L (5-15); Blood Urea Nitrogen 18 mg/dl (7-17); Calcium 9.7 mg/dl (8.4-10.2); Carbon Dioxide 25 mmol/L (22.0-30.0); Estimated Glomerular Filt Rate 45 ml/min (>60); GFR (African American) 54 ML/MIN (>60); Glucose 98 mg/dl (74-100)
--- NOTE | 2019-09-10 13:44 | MR_ITS ---
PROCEDURE: MR CERVICAL SPINE WO CON CLINICAL INDICATION: Neck pain Neck pain with headache COMPARISON: No exams were available for comparison TECHNIQUE: Standard multiplanar multiecho sequences are performed without contrast. 3-D MIP and myelographic images are also rendered and reviewed FINDINGS: Images of the skull base demonstrates a partial empty sella as well as some scattered increased T2 signal within the michelle and midbrain which could be related to ischemic gliotic change from microvascular disease. MRI brain without and with contrast may confirm. C2-C3: Unremarkable. C3-C4: 2 mm anterolisthesis of C3. There is some mild right foraminal narrowing from uncovertebral hypertrophy. C4-C5: 2 mm anterolisthesis of C4 C5-C6: Unremarkable. C6-C7: 3 mm anterolisthesis of C6 C7-T1: Unremarkable. IMPRESSION: Minimal degenerative changes as described above. No canal stenosis or extruded herniated disc. Images of the skull base demonstrates a partial empty sella as well as some scattered increased T2 signal within the michelle and midbrain which could be related to ischemic gliotic change from microvascular disease. MRI brain without and with contrast may confirm. Dictated by: Amol Sigala MD 09/11/2019 10:11 Electronically signed by Amol Sigala MD in [place] 09/11/2019 10:11
--- NOTE | 2019-09-10 13:44 | MR_ITS ---
PROCEDURE: MR LUMBAR SPINE WO CON CLINICAL INDICATION: Low back pain Low back pain, previous surgery, bilateral hip and leg pain COMPARISON: No exams were available for comparison TECHNIQUE: Standard multiplanar multiecho sequences are performed without contrast. 3-D MIP and myelographic images are also rendered and reviewed FINDINGS: The spinal cord ends at the L1 level. T12-L1: Small anterior osteophytes and minimal right-sided facet and ligamentum hypertrophy. L1-L2: Small anterior osteophytes with mild facet ligamentum hypertrophy with minimal right lateral recess narrowing. L2-L3: Unremarkable. L3-L4: Mild concentric bulging disc along facet and ligamentum hypertrophy. There is transverse narrowing of the canal and there is moderate bilateral lateral recess narrowing and moderate bilateral foraminal narrowing. This is slightly greater on the left. L4-5: Postsurgical changes with inter pedicular screws at L4 and L5 with resultant artifact. Minimal anterolisthesis of L4 4 mm. L5-S1: Mild facet ligamentum hypertrophy with mild bilateral foraminal narrowing. There are small left parapelvic renal cysts. IMPRESSION: 1. Multilevel lumbar spondylosis as detailed above 2. L3-L4: Mild concentric bulging disc along facet and ligamentum hypertrophy. There is transverse narrowing of the canal and there is moderate bilateral lateral recess narrowing and moderate bilateral foraminal narrowing. This is slightly greater on the left. 3. L4-5: Postsurgical changes with inter pedicular screws at L4 and L5 with resultant artifact. Minimal anterolisthesis of L4 4 mm. 4. L5-S1: Mild facet ligamentum hypertrophy with mild bilateral foraminal narrowing. 5. No extruded herniated disc. Dictated by: Amol Sigala MD 09/11/2019 10:06 Electronically signed by Amol Sigala MD in [place] 09/11/2019 10:06
== END ==
PROVIDERS: PCP Physician Assistant; Visit Provider Physician Assistant
DX: Z01.818 Encounter for other preprocedural examination (principal); I87.2 Venous insufficiency (chronic) (peripheral); M79.89 Other specified soft tissue disorders; M50.30 Other cervical disc degeneration, unspecified cervical region; M48.062 Spinal stenosis, lumbar region with neurogenic claudication
CPT/HCPCS: 36415; 72141; 72148; 73706; 76376; 80048; Q9967

== ENCOUNTER → 2019-10-01 10:30 | Outpatient (CLI) | payer MEDICARE, SELFPAY ==
--- NOTE | 2019-10-01 10:44 | MR_ITS ---
PROCEDURE: MR HEAD/BRAIN WO/W CON CLINICAL INDICATION: abnormalities seen on brain with MRI cspine HEADACHES. UNSTEADY BALANCE, ABNORMAL MRI 7-30-20. 17ML PROHANCE BUN: 11 CREAT: 0.9 GFR: 63 COMPARISON: No exams were available for comparison TECHNIQUE: Routine multiplanar multi echo sequences are performed without gadolinium enhancement. FINDINGS: No midline shift, mass effect, intracranial hemorrhage, or hydrocephalus is evident. There are areas of increased T2 signal within the michelle centrally which is nonspecific and may be related to ischemic gliotic gliotic change from microvascular disease. These do not demonstrate restricted diffusion. There is a small area of contrast enhancement at this region within the central aspect of the michelle very slightly eccentric toward the left measuring approximately 2 mm. There is also a small focus of enhancement in the left basal ganglia at 5 mm. These areas do not demonstrate restricted diffusion. The basal ganglia area does not show increase in T2 signal. There is mild nonspecific increased in periventricular T2 signal most noticeable in the left occipital lobe. The pituitary, optic chiasm, corpus callosum, and craniocervical junction have an unremarkable appearance. No mastoid effusion or sinus air-fluid level. There is a partial empty sella as a normal variant. IMPRESSION: 1. Nonspecific increase in T2 signal within the michelle and in the periventricular regions suggesting minimal ischemic gliotic change from microvascular disease. 2. There are 2 small vague areas of enhancement 1 in the left paramedian aspect of the michelle and 1 in the left basal ganglia. These do not demonstrate restricted diffusion. These are of questionable clinical significance. Etiologies would include infectious/inflammatory or neoplastic. Would recommend 6-8 week follow-up with contrast to confirm stability. Dictated by: Amol Sigala MD 10/02/2019 14:19 Amol Sigala MD in [place] 10/02/2019 14:19
== END ==
PROVIDERS: Visit Provider Physician Assistant
DX: Q28.3 Other malformations of cerebral vessels
CPT/HCPCS: 36415; 70553; 80048; A9576

== ENCOUNTER → 2019-10-01 10:45 | Outpatient (CLI) | payer MEDICARE, SELFPAY ==
[2019-10-01 11:26] LABS: Chloride 102 mmol/L (98-107)
[2019-10-01 11:27] LABS: Potassium 4.4 mmoL/L (3.5-5.1); Sodium 136 mmol/L (136-145)
[2019-10-01 11:30] LABS: Anion Gap 11.4 mEq/L (5-15); Blood Urea Nitrogen 11 mg/dl (7-17); Calcium 9.6 mg/dl (8.4-10.2); Carbon Dioxide 27 mmol/L (22.0-30.0); Estimated Glomerular Filt Rate 63 ml/min (>60); GFR (African American) 76 ML/MIN (>60); Glucose 101 mg/dl (74-100)
== END ==
PROVIDERS: PCP Physician Assistant; Visit Provider Physician Assistant
DX: Z01.818 Encounter for other preprocedural examination (principal)
CPT/HCPCS: 36415; 70553; 80048; A9576

== ENCOUNTER → 2019-10-05 15:13 | Outpatient (CLI) | payer MEDICARE, SELFPAY | PROVIDERS: Visit Provider Nurse Practitioner Family | DX: R30.0 Dysuria (principal) | CPT/HCPCS: 87086 ==

== ENCOUNTER → 2019-10-21 19:34 | Outpatient (CLI) | payer MEDICARE, SELFPAY | PROVIDERS: Visit Provider Physician Assistant | DX: N30.00 Acute cystitis without hematuria (principal) | CPT/HCPCS: 87086 ==

== ENCOUNTER 2019-11-20 10:43 | Emergency (ER) | payer MEDICARE, SELFPAY ==
[2019-11-20 10:44] VITALS: BP 149/77; PULSE 76; RESP 16; TEMP 37; O2SAT 98; BMI 31.8
--- NOTE | 2019-11-20 10:55 | XR_ITS ---
PROCEDURE: XR HIP RT 2-3V W/PELVIS CLINICAL INDICATION: fall Posttraumatic pain COMPARISON: No exams were available for comparison FINDINGS: There are moderate osteoarthritic changes involving both hips with prominent osteophytes along the lateral aspect of the acetabulum on both sides. No fracture or dislocation. No lytic or blastic change. Postsurgical changes are present in the lumbar spine at L4-5. IMPRESSION: Osteoarthritis of the hips Dictated by: Amol Sigala MD 11/20/2019 12:21 Amol Sigala MD in [place] 11/20/2019 12:21
--- NOTE | 2019-11-20 10:55 | XR_ITS ---
PROCEDURE: XR KNEE RT 3V CLINICAL INDICATION: fall Pain COMPARISON: CR KNEE3R KNEE-3 VIEWS-RT from 02/03/2016 FINDINGS: No fracture or dislocation. No lytic or blastic change. There is normal mineralization. Mild osteoarthritis involving all 3 compartments Other findings:None. IMPRESSION: Mild osteoarthritis otherwise negative Dictated by: Amol Sigala MD 11/20/2019 12:27 Amol Sigala MD in [place] 11/20/2019 12:27
--- NOTE | 2019-11-20 11:00 | PC.NURSE ---
Notified rad of x-rays
--- NOTE | 2019-11-20 12:14 | HMH.EDUTC ---
[facility] [place] Disposition Clinical Impression: Right hip pain Right knee pain Qualifiers: Chronicity: acute Qualified Code(s): M25.561 - Pain in right knee Fall Qualifiers: Encounter type: initial encounter Qualified Code(s): W19.XXXA - Unspecified fall, initial encounter Sinusitis Qualifiers: Sinusitis location: unspecified location Chronicity: acute Recurrence: non-recurrent Qualified Code(s): J01.90 - Acute sinusitis, unspecified Disposition: Home, Self-Care Condition on Discharge: Good Instructions: Sinusitis, DI for Knee Pain Additional Instructions: Drink plenty of fluids. Take tylenol or ibuprofen for pain or fever. Take the medications as directed. Follow up with your regular doctor. GO TO THE ER FOR ANY WORSENING SYMPTOMS Rest the extremity, apply ice for 15 minutes as tolerated three or four times per day, Wear the antonio wrap for compression, Elevate the extremity as tolerated while you are resting. Take ibuprofen for pain. Follow up with Dr. Loomis if you continue to have problems. I put in a referral but you need to call her office and schedule an appointment. Follow up with your regular doctor. GO TO THE ER FOR ANY WORSENING SYMPTOMS Prescriptions: Azithromycin [Z-Neil 250mg Tab*] 250 mg PO UD DOSE PK #6 tab Transmission Status: Received by [facility] #[id number] Referrals: Dilma Pearson PA [Primary Care Provider] - Leigh Ann Loomis MD [Physician] - Time of Disposition: 12:18 Medical Decision Making - Medical Records Medical records reviewed: No: I reviewed the patient's medical records. - Jesús Inquiry Pt receiving controlled substance: No Vital Signs: 11/20/19 10:44 11/20/19 12:26 Temperature 98.6 F 98.6 F Temperature Source Oral Oral Pulse Rate 76 Pulse Rate [Right] 76 Respiratory Rate 16 16 Blood Pressure 149/77 H Blood Pressure [Right Arm] 149/77 H Blood Pressure Mean [Right Arm] 101 Blood Pressure Source Automatic Cuff Blood Pressure Source [Right Arm] Automatic Cuff Blood Pressure Position Sitting Blood Pressure Position [Right Arm] Sitting 02 Sat by Pulse Oximetry 98 Oxygen Delivery Method Room Air Room Air - Radiology Data #1 Image(s): Knee Image Reviewed: Yes I reviewed the patient's radiology image, Yes I have reviewed radiologist's interpretation PROCEDURE: XR KNEE RT 3V CLINICAL INDICATION: fall Pain COMPARISON: CR KNEE3R KNEE-3 VIEWS-RT from 02/03/2016 FINDINGS: No fracture or dislocation. No lytic or blastic change. There is normal mineralization. Mild osteoarthritis involving all 3 compartments Other findings:None. IMPRESSION: Mild osteoarthritis otherwise negative Dictated by: Amol Sigala MD 11/20/2019 12:27 Amol Sigala MD in [place] 11/20/2019 12:27 #2 Image(s): Hip Image Reviewed: Yes I reviewed the patient's radiology image, Yes I have reviewed radiologist's interpretation Preliminary Findings: No Fracture Seen PROCEDURE: XR HIP RT 2-3V W/PELVIS CLINICAL INDICATION: fall Posttraumatic pain COMPARISON: No exams were available for comparison FINDINGS: There are moderate osteoarthritic changes involving both hips with prominent osteophytes along the lateral aspect of the acetabulum on both sides. No fracture or dislocation. No lytic or blastic change. Postsurgical changes are present in the lumbar spine at L4-5. IMPRESSION: Osteoarthritis of the hips Dictated by: Amol Sigala MD 11/20/2019 12:21 [facility] [place] HPI - General Stated complaint: fell 1009 injury R knee Time Seen by Provider: 11/20/19 10:45 Mode of Arrival: Ambulatory Source of Information: Patient Limitations: No Limitations Description of Symptoms (Recalled from Triage Doc. by RN): pt advises she fell yesterday and injured her right knee and hip HEENT Symptoms (Recalled from RN notes): No Resp Symptoms (Recalled from RN notes): No Skin Symptoms (Recalled from RN notes):
[2019-11-20 12:26] VITALS: BP 149/77; PULSE 76; RESP 16; TEMP 37; O2SAT 98
== END 2019-11-20 12:26 | disposition home or self-care (01) ==
PROVIDERS: Emergency Provider Nurse Practitioner Family; PCP Physician Assistant
DX: M25.551 Pain in right hip (principal); M25.561 Pain in right knee; J01.90 Acute sinusitis, unspecified; W01.0XXA Fall on same level from slipping, tripping and stumbling without subsequent striking against object, initial encounter; Y92.012 Bathroom of single-family (private) house as the place of occurrence of the external cause; I10 Essential (primary) hypertension; K21.9 Gastro-esophageal reflux disease without esophagitis; Z79.899 Other long term (current) drug therapy
CPT/HCPCS: G0463; 36415; 73502; 73562; 80048; 99201

== ENCOUNTER → 2019-11-20 12:39 | Outpatient (CLI) | payer MEDICARE, SELFPAY ==
[2019-11-20 13:04] LABS: Chloride 103 mmol/L (98-107)
[2019-11-20 13:05] LABS: Potassium 4.2 mmoL/L (3.5-5.1); Sodium 138 mmol/L (136-145)
[2019-11-20 13:08] LABS: Anion Gap 11.2 mEq/L (5-15); Blood Urea Nitrogen 12 mg/dl (7-17); Calcium 9.7 mg/dl (8.4-10.2); Carbon Dioxide 28 mmol/L (22.0-30.0); Estimated Glomerular Filt Rate 72 ml/min (>60); GFR (African American) 87 ML/MIN (>60); Glucose 103 mg/dl (74-100)
== END ==
PROVIDERS: Visit Provider Physician Assistant
DX: Z01.818 Encounter for other preprocedural examination (principal)
CPT/HCPCS: 36415; 80048

== ENCOUNTER → 2019-11-21 10:39 | Outpatient (CLI) | payer MEDICARE, SELFPAY ==
--- NOTE | 2019-11-21 | MR_ITS ---
PROCEDURE: MR HEAD/BRAIN WO/W CON CLINICAL INDICATION: F/U TO PRIOR MRI BRAIN Headache and unstable gait, follow-up abnormal MRI COMPARISON: MR MR HEAD/BRAIN WO/W CON from 10/01/2019 TECHNIQUE: Routine multiplanar multi echo sequences are performed without gadolinium enhancement. FINDINGS: No midline shift, mass effect, intracranial hemorrhage, or hydrocephalus is evident. No evidence of acute infarction. The cerebellopontine angle and cerebellum have an unremarkable appearance. Patchy areas of increased T2 signal once again noted within the michelle. There is suggestion of minimal enhancement in the central aspect of the michelle just to the left of midline which is somewhat less apparent compared to the previous exam. There is also some minimal enhancement in the left caudate nucleus area also once again noted and may be slightly smaller compared to the previous exam. There is a questionable tiny focus of enhancement in the right parietal lobe series 9, image 19. This however may be related to a vessel not significantly changed. No new areas of enhancement. There is a partial empty sella as a normal variant. No new enhancing lesions are apparent. IMPRESSION: No acute finding. Subtle areas of enhancement once again noted in the michelle and in the left basal ganglia which may be slightly less apparent. Overall no change in the scattered T2 hyperintensities of the michelle consistent with ischemic gliotic changes. Dictated by: Amol Sigala MD 11/24/2019 14:15 Amol Sigala MD in [place] 11/24/2019 14:15
== END ==
PROVIDERS: PCP Physician Assistant; Visit Provider Physician Assistant
DX: R90.89 Other abnormal findings on diagnostic imaging of central nervous system (principal)
CPT/HCPCS: 70553; A9576

== ENCOUNTER → 2019-11-30 10:53 | Outpatient (CLI) | payer MEDICARE, SELFPAY ==
--- NOTE | 2019-11-30 10:59 | MM_ITS ---
PROCEDURE: MM DIG SCREENING MAMM BI W/CAD Digital Breast Tomosynthesis Included CLINICAL INDICATION: screening xmg There is a history of breast cancer in the patient's mother diagnosed at age 60 and in the patient's maternal aunt age unknown. There has been a previous biopsy left breast for benign disease. COMPARISON: MG DIG MAMMO BILAT SCREENING from 06/28/2009 MG DIG MAMMO BILAT SCREENING from 11/26/2011 MG DMSB DIG MAMM-SCREEN MASOUD from 07/29/2012 TECHNIQUE: Standard CC and MLO images and 3D Tomosynthesis was obtained. R2 CAD reviewed. FINDINGS: Moderate diffuse fibroglandular densities are seen throughout both breast and the findings are fairly symmetrical bilaterally. There are stable tiny benign-appearing nodular densities in each breast. There is a benign-appearing microcalcification left breast. There is no suspicious lesion and no suspicious microcalcifications. IMPRESSION: Fibrofatty parenchyma with no suspicious lesions seen BI-RAD Category: 2 Benign Finding(s) FOLLOW-UP: 1YR 1 Year Follow-up (A letter has been sent to the patient regarding results of the study.) Dictated by: Dr. Jimmy Em MD 11/30/2019 15:55 Dr. Jimmy Em MD in [place] 11/30/2019 15:55
== END ==
PROVIDERS: PCP Physician Assistant; Visit Provider Nurse Practitioner Obstetrics & Gynecology
DX: Z12.31 Encounter for screening mammogram for malignant neoplasm of breast (principal)
CPT/HCPCS: 77063; 77067

== ENCOUNTER → 2020-01-13 15:08 | Outpatient (CLI) | payer MEDICARE, SELFPAY ==
[2020-01-13 15:51] LABS: Basophils # 0.1 K/mm3 (0-0.2); Basophils % 0.8 % (0.1-2.0); Eosinophils # 0.2 K/mm3 (0.0-0.4); Eosinophils % 2.2 % (0.1-12.0); Hematocrit 40.6 % (37.0-47.0); Hemoglobin 12.7 g/dL (12.2-16.2); Lymphocytes # 2.7 K/mm3 (0.7-4.5); Lymphocytes % 33.7 % (10-50); Mean Corpuscular HGB Conc 31.3 g/dL (31.8-35.4); Mean Corpuscular Hemoglobin 29.5 pg (27.0-31.2); Mean Corpuscular Volume 94.2 fl (81-99); Mean Platelet Volume 7.8 fl (7.4-10.4); Monocytes # 0.6 K/mm3 (0.1-1.0); Monocytes % 7.4 % (1.7-9.3); Neutrophils # 4.5 K/mm3 (1.8-7.8); Platelet Count 302 K/mm3 (142-424); Red Blood Count 4.31 M/mm3 (4.20-5.40); Red Cell Distribution Width 13.5 % (11.5-17.5)
[2020-01-13 16:19] LABS: Chloride 101 mmol/L (98-107); Sodium 135 mmol/L (136-145)
[2020-01-13 16:20] LABS: Potassium 4.4 mmoL/L (3.5-5.1)
[2020-01-13 16:22] LABS: Blood Urea Nitrogen 16 mg/dl (7-17); Estimated Glomerular Filt Rate 63 ml/min (>60)
[2020-01-13 16:23] LABS: Anion Gap 10.4 mEq/L (5-15); Calcium 9.8 mg/dl (8.4-10.2); Carbon Dioxide 28 mmol/L (22.0-30.0); GFR (African American) 76 ML/MIN (>60); Glucose 91 mg/dl (74-100)
== END ==
PROVIDERS: Visit Provider Nurse Practitioner Obstetrics & Gynecology
DX: Z01.818 Encounter for other preprocedural examination; K46.9 Unspecified abdominal hernia without obstruction or gangrene; N99.3 Prolapse of vaginal vault after hysterectomy
CPT/HCPCS: 36415; 80048; 85025

== ENCOUNTER → 2020-01-15 09:17 | Outpatient (CLI) | payer MEDICARE, SELFPAY ==
[2020-01-15 11:51] LABS: Coronavirus 19 IgG Antibody Negative (Negative); Coronavirus 19 IgM Antibody Negative (Negative)
== END ==
PROVIDERS: Visit Provider Nurse Practitioner Obstetrics & Gynecology
DX: Z01.818 Encounter for other preprocedural examination (principal)
CPT/HCPCS: 36415; 86328

== ENCOUNTER 2020-01-18 06:27 | Observation (INO) | payer MEDICARE, SELFPAY ==
[2020-01-18] VITALS (25 sets, daily range): BP systolic 97–143; BP diastolic 47–78; PULSE 73–107; RESP 12–22; TEMP 36.2–43; O2SAT 91–100; BMI 32.1
--- NOTE | 2020-01-18 06:44 | ECG_ITS ---
APPROVED REPORT Exam: Resting ECG HR:80 bpm ECG Measurements Heart Rate 80 AXES MO 172 P 61 QRSd 78 QRS 6 QT 390 T 59 QTc 449 Conclusion Normal sinus rhythm with sinus arrhythmia Low voltage QRS Borderline ECG Electronically signed by : Joel Ford, 01/18/2020 08:10:02
--- NOTE | 2020-01-18 07:55 | P.PN_ITS ---
[facility] Anesthesia Checklist - Structural Data Admitted From: Home Planned Operative Procedure/s: vag vault repair Consent for Planned Operative Procedure(s) Verified: Yes - Additional verifications Anesthesia Reactions: No Hx Blood Transfusions: No Blood Transfusion Reaction: No - Airway Assessment C-Spine Mobility Assessed: Yes TMJ Mobility Assessed: Yes Dentition: Good Dentition - Neurological Assessment Level of Consciousness: Awake, Alert, Appropriate - Anesthesia Plan Anesthesia Risk discussed: Yes Anesthesia Plan: Verified ASA Class: II Anesthesia Type: General [facility] History I have reviewed the patient's past medical history: Yes Medical History: Reports:: Gastroesophageal Reflux Disease(GERD), Hypertension Denies:: Cancer, Diabetes Mellitus Type 1, Diabetes Mellitus Type 2, Internal Pacemaker, Lung Disease, MRSA, Seizures *Have you ever received a pneumonia vaccine?: Yes *Have you received a flu vaccine this season?: Yes Other Medical History: Reports: Arthritis. Denies: Blood Transfusion Reaction Anesthesia experience/problems:: none Laterality Cases: Left: Lumpectomy, Bilateral: Tonsillectomy Other Surgeries: Yes: Cholecystectomy, Colonoscopy, , EGD, Sinus Surgery. No: Pacemaker Amputation: No Fractures: No - *Social History Last grade of school completed: GED Smoking Status: Never smoker Alcohol Intake: never Alcohol Intake Frequency:: other Substance Use Type: denies use *Occupational Status:: retired Housing: house Household Members: spouse *Travel in the last 8 weeks: None Family Hx:: Cancer, Coronary Artery Disease, Diabetes, Heart Attack, Hyperlipidemia, Hypertension
--- NOTE | 2020-01-18 09:59 | HMH.ANESI ---
[facility] Anesthesia Record Part I Intake, IV Amount: 1,500 Estimated blood loss (mL): 250 Urine output (mL): 200 Blood Pressure: 127/75 SaO2: 92 Pulse Rate: 93 Respiratory Rate: 12 Temperature: 97.2 F Patient is:: Awake, Stable Stable to PACU at:: 09:55
--- NOTE | 2020-01-18 10:03 | HMH.OPNOTE ---
Date of procedure: 01/18/20 Pre-op Diagnosis:: Complete post hysterectomy vaginal vault prolapse, cystocele, rectocele, enterocele Post-op Diagnosis:: Complete post hysterectomy vaginal vault, cystocele, rectocele, enterocele Procedure performed:: Resuspension of vaginal vault, anterior repair, posterior repair, repair of enterocele with Mcfadden sutures Surgeon:: José Miguel Sue MD Dressing Machine Operator(s):: Adriana Delacruz WELDER PRODUCTION LINE ARC:: John Xie Anesthesia: GETA Estimated blood loss (mL): 250 Clinical Note:: She is a 64-year-old lady who has complete prolapse of the vaginal vault. She has had a previous hysterectomy. She has the vaginal vault completely protruding through the introitus. The introitus is also quite lax. We have tried a couple of different types of pessaries and none of these worked. After having discussed the risks and benefits we elected perform a vaginal vault suspension with cystocele, rectocele, enterocele repair. Operative findings:: She had complete prolapse of the vaginal vault through the introitus. She had a large enterocele as well as a rectocele. She had a very large cystocele. Operative note:: She was taken the operating room where general anesthesia was found to be adequate. She was prepped and draped in normal sterile fashion in the lithotomy position. The bladder was drained. I grasped the vaginal vault with Whitehead tenacula where the scars were from the previous hysterectomy. I then injected 10 cc of 2% Xylocaine with epinephrine subcutaneously along the top of the vaginal vault. I then made a small V shaped incision lateral to the left Whitehead tenacula and then made a incision across the top of the vagina from Whitehead tenaculum Whitehead tenacula. I made a similar incision inferiorly joining up to the other side. I then grasped the edge of the posterior vaginal skin below the scar and using Cerrato scissors dissected off the posterior vaginal mucosa. I made a wedge-shaped incision in this and dissected down approximately 4 inches. This flap of skin was then placed in the posterior vagina. I then was able to open up into the peritoneal cavity and using a large Duchesne retractor anteriorly I packed away the bowel with a warm moist pack. I then grasped the left uterosacral ligament which was cut clamped and suture-ligated. I then grasped the left Whitehead tenacula and using both sharp and blunt dissection dissected the bladder off both laterally and superiorly. I dissected the skin off from the cardinal ligament which was attached to the Whitehead tenacula. I then placed a Darren retractor on the left side and using my finger I was able to palpate the ureter. I then grasped this band of tissue that enclosed the cardinal ligament cut and suture-ligated and tagged this. Similarly on the right side I grasped the right uterosacral ligament cut and suture-ligated this with the tag. On the right side I then dissected the bladder and skin laterally from the cardinal ligament. Once again I inserted a Duchesne retractor on the right side and was able to palpate the ureter. I then clamped across the cardinal ligament cut and suture ligated this with a tag. I then removed the redundant peritoneum that formed the enterocele sac by grasping it with an Allis clamp and removing the redundant tissue. Grasping the left uterosacral ligament tag I then placed a 0 PDS suture in the pararectal tissue on the left side. I plicated across the posterior peritoneum and placed the suture then through the right pararectal fascia that was adjacent to the uterosacral ligament on the right side. This was then tagged. I then placed a second Mcfadden suture in a similar fashion slightly above the first suture. I then placed an external Mcfadden suture by grasping the vaginal mucosa at the vault and passing the suture through the vaginal mucosa. Once again I took a bite of the pararectal fascia on the left side above the other sutures and plicated across the senior developer
--- NOTE | 2020-01-18 10:28 | PC.NURSE ---
REPORT RECEIVED FROM Haile BURRIS RN.
--- NOTE | 2020-01-18 10:38 | PC.NURSE ---
PT ARRIVED TO ROOM 279 AT THIS TIME
--- NOTE | 2020-01-18 10:43 | PC.NURSE ---
PT ASSESSED AT THIS TIME. BILATERAL LUNG SOUNDS CLEAR. NO EDEMA NOTED. BILATERAL SCUDS IN PLACE. NO PAIN AT THIS TIME. RASH NOTED TO CHEST AND R ARM BELIEVED TO BE CAUSED FROM BEAR HUGGER GOWN. PT CHANGED INTO REGULAR GOWN AT THIS TIME. PT RESTING WITH EYES CLOSED BUT WILL AWAKE TO NAME. SCANT AMOUNT OF VAGINAL BLEEDING NOTED ON PEACH PAD, SEROUS IN COLOR. O2 NC @ 4L AT THIS TIME. IV INFUSING OF LR AT 125 ML/HR. WILL CONTINUE TO OBSERVE.
--- NOTE | 2020-01-18 10:53 | HMH.PHAINT ---
MEDICATION RECONCILIATION COMPLETED ON PATIENT USING EXTERNAL FILL HISTORY FROM PHARMACY AND LIST FROM PHYSICIAN'S OFFICE. -JOSHUA BULLARDD
--- NOTE | 2020-01-18 11:13 | PC.NURSE ---
PT RESTING WITH EYES CLOSED WILL AWAKE TO NAME BEING CALLED. DENIES ANY NEEDS AT THIS TIME. PT GIVEN TORADOL PO AT THIS TIME. TOLERATED FLUIDS WELL.
--- NOTE | 2020-01-18 12:29 | PC.NURSE ---
PT AWAKE EATING CLEAR LIQUID DIET. REQUEST PAIN MEDICATION AT THIS TIME RATES 7/10 ON VERBAL SCALE MEDICATED PER EMAR. DENIES ANY FURTHER NEEDS WILL CONTINUE TO OBSERVE.
--- NOTE | 2020-01-18 14:20 | PC.NURSE ---
DR. PAN CALLED AT THIS TIME. PT HAVING GI PAIN AND REQUESTING GI COCKTAIL. ORDER FOR THIS AT THIS TIME. REPEATED AND VERIFIED. ALSO ORDERS TO RESTART HOME MEDS IN AM. ORDERS TO DC INDWELLING CATH IN AM AND HE WILL REMOVE VAGINAL PACKING IN AM.
--- NOTE | 2020-01-18 17:00 | PC.NURSE ---
DR. PAN AT BEDSIDE AT THIS TIME.
[2020-01-18 17:53] LABS: Hematocrit 34.2 % (37.0-47.0)
--- NOTE | 2020-01-18 19:14 | PC.NURSE ---
report given to Galina Torres RN
--- NOTE | 2020-01-18 20:57 | HMH.ANESII ---
[facility] Anesthesia Record Part II Discharge Time: 10:35 Destination: Surgical Day Care (OP Surgery) PACU nurse assessment reviewed?: Yes Patient Condition:: Good Anesthesia Complications:: None Swallowing reflex intact?: Yes Cyanosis?: No Blood Pressure: 115/65 Pulse Rate: 86 Temperature: 98.3 F Mental Status: Alert & Oriented Pain level:: 0 Nausea and/or vomitting:: None Intake, IV Amount: 0
[2020-01-19 00:30] VITALS: BP 130/64; PULSE 83; RESP 18; TEMP 36.8; O2SAT 98
[2020-01-19 03:55] VITALS: BP 149/68; PULSE 85; RESP 18; TEMP 37.1; O2SAT 97
--- NOTE | 2020-01-19 03:57 | PC.NURSE ---
Pt davila slept in intervals this shift, A&O x4, BLT lung sounds clear throughout, Bowel sounds in all 4 quadrants, Pt's catheter patent and draining light yellow urine, Pt's IV infusing well, Incentive used multiple times this shift, Vaginal packing remains in place with scant amounts of blood noted on pads. Pt remains on 1L NC, Pt denies headache, N/V, or SOA, Minimal pain at this time.
--- NOTE | 2020-01-19 05:30 | PC.NURSE ---
Pt taken of NC at this time O2 saturation 97%
--- NOTE | 2020-01-19 07:20 | PC.NURSE ---
REPORT RECEIVED FROM Galina HOLDEN RN.
--- NOTE | 2020-01-19 07:24 | PC.NURSE ---
Report given to Arturo Mccall RN
--- NOTE | 2020-01-19 07:26 | P.CONPHA_ITS ---
[facility] Pharmacy VTE Monitoring - Patient Demographics Admission date: 01/19/20 Report Date: 01/19/20 Time: 07:26 Allergies/Adverse Reactions: Patient Allergies acetaminophen [From Tylox] Allergy (Mild, Verified 01/13/20 13:57) Rash cephalexin [From Keflex] Allergy (Unknown, Verified 01/13/20 13:57) codeine [CODEINE] Allergy (Unknown, Verified 01/13/20 13:57) DIFFICULTY BREATHING oxycodone [OXYCODONE] Allergy (Unknown, Verified 01/13/20 13:57) DIFFICULTY BREATIHNG sumatriptan [SUMATRIPTAN] Allergy (Unknown, Verified 01/13/20 13:57) STROKE SYMPTOMS Height: 1.6 m Weight: 82.1 kg - VTE Risk Labs: VTE Related Lab Results Hgb 11.0 g/dL (12.2-16.2) L 01/18/20 17:30 Hct 34.2 % (37.0-47.0) L 01/18/20 17:30 Clinical Trial Participant: No - Prophylaxis VTE Prophylaxis Ordered?: Yes Types of VTE Prophylaxis: IPCS Knee High Location of Applied Device: Bilateral Lower Extremeties
[2020-01-19 08:00] VITALS: BP 147/62; PULSE 94; RESP 18; TEMP 36.8; O2SAT 96
--- NOTE | 2020-01-19 08:12 | PC.NURSE ---
PT ASSESSMENT COMPLETED AT THIS TIME. BILATERAL LUNG SOUNDS CLEAR. NO EDEMA NOTED. BOWEL SOUNDS ACTIVE X4 QUADS. PT STATES PAIN 5/10 ON VERBAL SCALE AT THIS TIME R/T VAGINAL PAIN THAT IS DULL AND ACHING. DENIES NEED FOR PAIN MEDICATION AT THIS TIME. PT IS ON RA AND SPO2 IS 96%. NO RASH NOTED TO CHEST. INDWELLING CATHETER WAS REMOVED AT THIS TIME AND 10CC OF WATER WAS PULLED FROM BALLOON. PT DENIES ANY FURTHER NEEDS AT THIS TIME. PT IS EATING AND DRINK WELL.
--- NOTE | 2020-01-19 08:30 | PC.NURSE ---
DR. PAN AT BEDSIDE AT THIS TIME. DR. PAN REMOVED VAGINAL PACKING AT THIS TIME. PT TOLERATED WELL.
--- NOTE | 2020-01-19 08:30 | PC.NURSE ---
ASSESSMENT COMPLETED AT THIS TIME. BILATERAL LUNG SOUNDS CLEAR. NO EDEMA NOTED. BOWEL SOUNDS ACTIVE X4 QUADS. PT IS A&O X4 AT THIS TIME. DAUGHTER IS PRESENT AT BEDSIDE. PT WAS CONFUSED EARLIER THIS AM POSSIBLY R/T ANESTHESIA. PT DENIES ANY PAIN AT THIS TIME. GARCÍA IN PLACE DRAINING DARK JORDYN URINE. R HIP IS IMMOBILIZED WITH WEDGE BTW LEGS IN PLACE. R HIP SX DRESSING IS C/D/I NEW ICE PACK APPLIED TO SITE AT THIS TIME. WILL CONTINUE TO OBSERVE.
--- NOTE | 2020-01-19 09:00 | PC.NURSE ---
Ariadne LU WITH CARE MANAGEMENT AT BEDSIDE AT THIS TIME SPEAKING WITH PT AND DAUGHTER ABOUT PT PLACEMENT.
--- NOTE | 2020-01-19 09:27 | PC.NURSE ---
PT UM AMBULATING IN ROOM AT THIS TIME. PT IS AWARE TO VOID IN HAT. BED LINENS AND GOWN CHANGED.
[2020-01-19 12:00] VITALS: BP 141/63; PULSE 80; RESP 20; TEMP 37; O2SAT 95
--- NOTE | 2020-01-19 13:14 | PC.NURSE ---
PT SITTING IN CHAIR. AT BEDSIDE. DENIES ANY FURTHER NEEDS AT THIS TIME.
--- NOTE | 2020-01-19 13:47 | PC.NURSE ---
DR. PAN AT BEDSIDE AT THIS TIME. ORDERS FOR INSERT URINARY CATHETER CONNECT LEG BAG AND FOR AN APPOINTMENT ON SATURDAY. ORDERS REPEATED AND VERIFIED
--- NOTE | 2020-01-19 13:53 | HMH.DCSUM ---
General - General Admission date:: 01/18/20 Discharge date: 01/19/20 HPI HPI: She is a 64-year-old lady with complete prolapse of the vaginal vault post hysterectomy. She has a cystocele, enterocele and rectocele. She is admitted for repair of these. Hospital Course Hospital Course: On January 18, 2020 she underwent a vaginal vault resuspension with cystocele, enterocele, rectocele repair. She has done well postoperatively and has remained afebrile for her hospitalization. She denies any shortness of breath, chest pain or calf tenderness. She has had her Nicholas catheter removed as well as the vaginal packing. She is only able to void a small amount so we are going to reinsert a Nicholas catheter with a leg bag and see her back in the office in 48 hours time. She was given the usual instructions with respect to limiting her activity, driving and sexual activity. She will continue with her home medications. She was given a prescription for hydromorphone 1 mg number 10 tablets. She will take ibuprofen as well as Tylenol at home. Her condition on discharge is stable and improved. Objective Vital signs: Temp Pulse Resp BP Pulse Ox 98.6 F 80 20 141/63 H 95 01/19/20 12:00 01/19/20 12:00 01/19/20 12:00 01/19/20 12:00 01/19/20 12:00 no acute distress - *Routine HEENT Exam Head: Present: normocephalic Eye: Present: EOMI, PERRL ENT: Present: mucous membranes moist - *Routine Neck Exam Present: supple - *Routine Respiratory Exam Present: CTA bilaterally - *Routine Cardiovascular Exam Present: RRR - *Routine Abdominal Exam Present: soft, normoactive bowel sounds. Absent: tenderness - *Routine Extremities Exam Absent: cyanosis, clubbing, edema Results Labs on day of discharge: Labs from last 24 hours 01/18/20 17:30 Hgb 11.0 L Hct 34.2 L DS: Diagnosis - Discharge Diagnosis (1) Vaginal vault prolapse Status: Acute (2) Cystocele Status: Acute (3) Midline cystocele Status: Acute (4) Rectocele Status: Acute (5) Enterocele Status: Acute Discharge Plan - Patient Discharge Instructions ACTIVITY: No heavy lifting DIET: continue same diet - Follow up Plan Disposition: Home, Self-Halfway Medications: Home Medications Medication Instructions Recorded Confirmed Type cholecalciferol (vitamin D3) 25 1,000 unit PO DAILY #90 cap 01/05/20 01/18/20 Rx mcg (1,000 unit) capsule lisinopril 20 mg tablet 20 mg PO DAILY #90 tab 01/05/20 01/18/20 Rx loratadine 10 mg tablet 10 mg PO DAILY #90 tab 01/05/20 01/18/20 Rx omeprazole 20 mg capsule,delayed 20 mg PO DAILY #90 cap 01/05/20 01/18/20 Rx release Estrogens, Conjugated [Premarin] 15 gm VAGINAL DAILY 01/15/20 01/18/20 History RX: Oxybutynin Chloride 10 mg PO DAILY 01/15/20 01/18/20 History [Oxybutynin Chloride ER] RX: dilTIAZem HCL [Cardizem Cd] 300 mg PO DAILY 01/15/20 01/18/20 History RX: LORazepam [Lorazepam] 1 mg PO BIDP PRN 01/18/20 01/18/20 History RX: polyethylene glycoL 3350 17 g PO DAILY 01/18/20 01/18/20 History [Polyethylene Glycol 3350] Hydromorphone HCl [Hydromorphone 1 mg PO Q4HP PRN #10 tab 01/19/20 Rx 2mg Tab] fluoxetine 40 mg capsule 40 mg PO DAILY #90 cap 01/19/20 Rx Prescriptions/Medication Reconciliation: New Hydromorphone HCl [Hydromorphone 2mg Tab] 1 mg PO Q4HP PRN #10 tab PRN Reason: Severe Pain Continued cholecalciferol (vitamin D3) 25 mcg (1,000 unit) capsule 1,000 unit PO DAILY #90 cap omeprazole 20 mg capsule,delayed release 20 mg PO DAILY #90 cap fluoxetine 40 mg capsule 40 mg PO DAILY #90 cap lisinopril 20 mg tablet 20 mg PO DAILY #90 tab loratadine 10 mg tablet 10 mg PO DAILY #90 tab RX: Oxybutynin Chloride [Oxybutynin Chloride ER] 10 mg PO DAILY RX: dilTIAZem HCL [Cardizem Cd] 300 mg PO DAILY RX: polyethylene glycoL 3350 [Polyethylene Glycol 3350] 17 g PO DAILY Estrogens, Conjugated [Premarin] 15 gm VAG
--- NOTE | 2020-01-19 15:17 | PC.NURSE ---
DISCHARGE INSTRUCTIONS GONE OVER AT THIS TIME. RN INSERTED CATHETER AT THIS TIME AND ATTACHED LEG BAG. RN DEMONSTRATED HOW TO DETACH AND REATTACH LARGER BAG AT THIS TIME. RN DEMONSTRATED HOW TO REMOVE CATHETER AT THIS TIME. PT VU. PT TO REMOVE CATHETER BEFORE APPT SATURDAY MORNING. QUESTIONS ENCOURAGED AND ANSWERED AT THIS TIME. PT SABINE.
--- NOTE | 2020-01-20 11:18 | HMH.HP ---
*Admission Date: 01/19/20 *History of present illness: She is a 64-year-old lady with complete prolapse of the vaginal vault post hysterectomy. She has a cystocele, enterocele and rectocele. She is admitted for repair of these. [facility] History I have reviewed the patient's past medical history: Yes Medical History: Reports:: Gastroesophageal Reflux Disease(GERD), Hypertension Denies:: Cancer, Diabetes Mellitus Type 1, Diabetes Mellitus Type 2, Internal Pacemaker, Lung Disease, MRSA, Seizures *Have you ever received a pneumonia vaccine?: No *Have you received a flu vaccine this season?: No Other Medical History: Reports: Arthritis. Denies: Blood Transfusion Reaction Anesthesia experience/problems:: none Laterality Cases: Left: Lumpectomy, Bilateral: Tonsillectomy Other Surgeries: Yes: Cholecystectomy, Colonoscopy, , EGD, Sinus Surgery. No: Pacemaker Amputation: No Fractures: No - *Social History Last grade of school completed: GED Smoking Status: Never smoker Alcohol Intake: never Alcohol Intake Frequency:: other Substance Use Type: denies use *Occupational Status:: retired Housing: house Household Members: spouse *Travel in the last 8 weeks: None Family Hx:: Cancer, Coronary Artery Disease, Diabetes, Heart Attack, Hyperlipidemia, Hypertension Review of Systems - Review of Systems Review of systems:: pertinent systems reviewed and negative unless documented below Meds Home Medications Medication Instructions Recorded Confirmed Type cholecalciferol (vitamin D3) 25 1,000 unit PO DAILY #90 cap 01/05/20 01/18/20 Rx mcg (1,000 unit) capsule lisinopril 20 mg tablet 20 mg PO DAILY #90 tab 01/05/20 01/18/20 Rx loratadine 10 mg tablet 10 mg PO DAILY #90 tab 01/05/20 01/18/20 Rx omeprazole 20 mg capsule,delayed 20 mg PO DAILY #90 cap 01/05/20 01/18/20 Rx release Estrogens, Conjugated [Premarin 15 gm VAGINAL DAILY 01/15/20 01/18/20 History Cream 0.625mg/g 30g Applicator] Oxybutynin Chloride [Oxybutynin 10 mg PO DAILY 01/15/20 01/18/20 History Chloride ER] dilTIAZem HCL [Cardizem Cd] 300 mg PO DAILY 01/15/20 01/18/20 History LORazepam [Lorazepam] 1 mg PO BIDP PRN 01/18/20 01/18/20 History polyethylene glycoL 3350 17 g PO DAILY 01/18/20 01/18/20 History [Polyethylene Glycol 3350] Hydromorphone HCl [Hydromorphone 1 mg PO Q4HP PRN #10 tab 01/19/20 Rx 2mg Tab] fluoxetine 40 mg capsule 40 mg PO DAILY #90 cap 01/19/20 Rx Allergies Allergy/AdvReac Type Severity Reaction Status Date / Time acetaminophen [From Tylox] Allergy Mild Rash Verified 01/13/20 13:57 cephalexin [From Keflex] Allergy Unknown Verified 01/13/20 13:57 codeine [CODEINE] Allergy Unknown DIFFICULTY Verified 01/13/20 13:57 BREATHING oxycodone [OXYCODONE] Allergy Unknown DIFFICULTY Verified 01/13/20 13:57 BREATIHNG sumatriptan [SUMATRIPTAN] Allergy Unknown STROKE Verified 01/13/20 13:57 SYMPTOMS Exam Vital signs and Labs for Last 24 Hours: Temp Pulse Resp BP Pulse Ox 98.6 F 80 20 141/63 H 95 01/19/20 12:00 01/19/20 12:00 01/19/20 12:00 01/19/20 12:00 01/19/20 12:00 I & O for Last 24 hours: Intake & Output 01/17/20 01/18/20 01/19/20 01/20/20 11:59 11:59 11:59 11:59 Intake Total 1500 / 1500 2697 / 2697 Output Total 5350 / 5350 300 / 300 Balance 1500 / 1500 -2653 / -2653 -300 / -300 Weight 181 lb - Constitutional no acute distress - *Routine HEENT Exam Head: Present: normocephalic Eye: Present: EOMI, PERRL ENT: Present: mucous membranes moist - *Routine Neck Exam Present: supple, full ROM - *Routine Respiratory Exam Absent: accessory muscle use (good air entry bilaterally), wheezes, crackles - *Routine Cardiovascular Exam Present: RRR. Absent: murmur - *Routine Abdominal Exam Present: soft, normoactive bowel sounds. Absent: tenderness, rebound, guarding, mass - *Routine Rectal Exam Patient deferred: visual exam, digital exam - *Routine Exam Patient defe
== END 2020-01-19 15:40 | disposition home or self-care (01) ==
LOC: OB 06:29
PROVIDERS: Admitting Provider Nurse Practitioner Obstetrics & Gynecology; PCP Physician Assistant; Visit Provider Nurse Practitioner Obstetrics & Gynecology
PROC: 0UQF0ZZ Repair Cul-de-sac, Open Approach (ICD-10-PCS; CPT 57265; principal; 2020-01-18 07:30)
DX: N99.3 Prolapse of vaginal vault after hysterectomy (principal); N39.46 Mixed incontinence; I10 Essential (primary) hypertension; Z79.899 Other long term (current) drug therapy; Z79.890 Hormone replacement therapy
CPT/HCPCS: 57265; 85014; 85018; 93005; 96372; 96374; G0378; J2405

== ENCOUNTER → 2020-07-14 11:18 | Outpatient (CLI) | payer MEDICARE, SELFPAY ==
[2020-07-14 11:54] LABS: Basophils # 0.1 K/mm3 (0-0.2); Basophils % 0.8 % (0.1-2.0); Eosinophils # 0.3 K/mm3 (0.0-0.4); Eosinophils % 4.5 % (0.1-12.0); Hematocrit 38.1 % (37.0-47.0); Hemoglobin 12.4 g/dL (12.2-16.2); Lymphocytes # 2.3 K/mm3 (0.7-4.5); Lymphocytes % 33.3 % (10-50); Mean Corpuscular HGB Conc 32.5 g/dL (31.8-35.4); Mean Corpuscular Hemoglobin 27.5 pg (27.0-31.2); Mean Corpuscular Volume 84.7 fl (81-99); Mean Platelet Volume 8.2 fl (7.4-10.4); Monocytes # 0.5 K/mm3 (0.1-1.0); Monocytes % 7.3 % (1.7-9.3); Neutrophils # 3.8 K/mm3 (1.8-7.8); Neutrophils % 54.2 % (37.0-80.0); Platelet Count 284 K/mm3 (142-424); Red Cell Distribution Width 15.9 % (11.5-17.5)
[2020-07-14 13:39] LABS: Chloride 103 mmol/L (98-107); Potassium 4.9 mmoL/L (3.5-5.1); Sodium 138 mmol/L (136-145)
[2020-07-14 13:41] LABS: Amylase 63 U/L (30-110); Blood Urea Nitrogen 17 mg/dl (7-17); Estimated Glomerular Filt Rate 72 ml/min (>60); GFR (African American) 87 ML/MIN (>60)
[2020-07-14 13:42] LABS: Alanine Aminotransferase 20 U/L (12-78); Albumin Level 4.7 g/dl (3.5-5.0); Albumin/Globulin Ratio 1.4 (1.1-1.8); Alkaline Phosphatase 150 U/L (38-126); Anion Gap 12.9 mEq/L (5-15); Aspartate Amino Transferase 30 U/L (14-36); Bilirubin,Total 0.5 mg/dl (0.2-1.3); Calcium 9.7 mg/dl (8.4-10.2); Carbon Dioxide 27 mmol/L (22.0-30.0); Chol/HDL Ratio 4.5 (1-3.5); Cholesterol 299 mg/dl (140-200); Globulin 3.3 g/dL (1.3-3.2); Glucose 99 mg/dl (74-100); HDL Cholesterol 67 mg/dl (40-60); Lipase 98 U/L (23-300); Triglycerides 115 mg/dl (30-150); VLDL Cholesterol 23 mg/dL (0-40)
[2020-07-14 13:53] LABS: Direct LDL Cholesterol 171.65 mg/dL (100-129)
[2020-07-14 14:01] LABS: 25-OH Vitamin D, Total 56.6 ng/mL (30-100)
[2020-07-15 21:08] LABS: H. pylori Breath Test Negative (Negative)
== END ==
PROVIDERS: Visit Provider Physician Assistant
DX: R10.13 Epigastric pain (principal); I10 Essential (primary) hypertension; E55.9 Vitamin D deficiency, unspecified; R19.8 Other specified symptoms and signs involving the digestive system and abdomen
CPT/HCPCS: 36415; 80053; 80061; 82150; 82306; 83013; 83690; 84443; 85025

== ENCOUNTER → 2020-12-09 11:33 | Outpatient (CLI) | payer MEDICARE, SELFPAY | PROVIDERS: Visit Provider Internal Medicine Gastroenterology | DX: Z01.812 Encounter for preprocedural laboratory examination (principal); Z11.52 Encounter for screening for COVID-19 | CPT/HCPCS: C9803; U0003; U0005 ==

== ENCOUNTER → 2020-12-20 10:42 | Outpatient (CLI) | payer MEDICARE, SELFPAY ==
--- NOTE | 2020-12-20 10:42 | MM_ITS ---
PROCEDURE: MM DIG SCREENING MAMM BI W/CAD Digital Breast Tomosynthesis Included CLINICAL INDICATION: screening There is a history of breast cancer patient's mother diagnosed at age 60 and in the patient's maternal aunt. There has been a previous biopsy left breast for benign disease. COMPARISON: MG DMSB DIG MAMM-SCREEN [facility]OUD from 07/29/2012 MG Screening-Bilateral Mammography from 10/16/2017 MG MM DIG SCREENING MAMM BI W/CAD from 11/30/2019 TECHNIQUE: Standard CC and MLO images and 3D Tomosynthesis was obtained. R2 CAD reviewed. FINDINGS: Prominent diffuse fibroglandular densities are seen throughout both breasts. There are 3-4 small nodular densities right breast which are stable. There is a stable small nodular density central portion left breast as well. There is no new or suspicious lesion in either breast and no suspicious microcalcifications. IMPRESSION: Fibrofatty parenchyma with no suspicious lesions seen BI-RAD Category: 2 Benign Finding(s) FOLLOW-UP: 1YR 1 Year Follow-up (A letter has been sent to the patient regarding results of the study.) Dictated by: Dr. Jimmy Em MD 12/23/2020 12:53 Dr. Jimmy Em MD in [place] 12/23/2020 12:53
== END ==
PROVIDERS: PCP Physician Assistant; Visit Provider Physician Assistant
DX: Z12.31 Encounter for screening mammogram for malignant neoplasm of breast (principal)
CPT/HCPCS: 77063; 77067

== ENCOUNTER 2021-03-27 12:30 | Emergency (ER) | payer MEDICARE, SELFPAY ==
[2021-03-27 12:31] VITALS: BP 181/100; PULSE 110; RESP 24; TEMP 36.6; O2SAT 97; BMI 27.4; BMI 28.3
--- NOTE | 2021-03-27 12:35 | CT_ITS ---
FINAL REPORT CLINICAL HISTORY: AMS FINDINGS: Axial images of the head were obtained without contrast. Coronal reformatted images were also obtained.This study was performed with techniques to keep radiation doses as low as reasonably achievable (ALARA). Individualized dose reduction techniques using automated exposure control or adjustment of mA and/or kV according to the patient''s size were employed. There is no evidence of intracranial hemorrhage or mass. The ventricular size is within normal limits. There is no evidence of shift of the midline structures. No abnormal extra axial fluid collection is identified. No skull abnormality is seen on the bone window images. IMPRESSION: No acute intracranial abnormality. Reviewed, Interpreted and Dictated by Alvaro Esquivel III, MD Transcribed by Alena Chaidez Authenticated by Alvaro Esquivel III, MD on 03/27/2021 02:07:38 PM [facility]
--- NOTE | 2021-03-27 12:35 | XR_ITS ---
FINAL REPORT CLINICAL HISTORY: AMS, elevated bp COMPARISON: July 07, 2017 FINDINGS: The heart size is normal. The mediastinum is normal. There is no focal infiltrate or edema. There are no pleural effusions. There is no pneumothorax. There is no osseous abnormality. IMPRESSION: No acute cardiopulmonary process Reviewed, Interpreted and Dictated by Alvaro Esquivel III, MD Transcribed by Darryn Trent Authenticated by Alvaro Esquivel III, MD on 03/27/2021 02:07:39 PM [facility]
--- NOTE | 2021-03-27 12:38 | ECG_ITS ---
APPROVED REPORT Exam: Resting ECG HR:111 bpm ECG Measurements Heart Rate 111 AXES ID 187 P 150 QRSd 84 QRS 80 QT 334 T 127 QTc 399 Conclusion ECTOPIC ATRIAL TACHYCARDIA Left atrial abnormality ABNORMAL ECG UNCONFIRMED REPORT Electronically signed by : Joel Ford MD 03/29/2021 21:06:53
[2021-03-27 13:10] VITALS: BP 203/99; PULSE 104; O2SAT 95
--- NOTE | 2021-03-27 13:12 | PC.NURSE ---
Patient back from CT
[2021-03-27 13:19] LABS: Basophils # 0.1 K/mm3 (0-0.2); Basophils % 0.6 % (0.1-2.0); Eosinophils # 0.1 K/mm3 (0.0-0.4); Eosinophils % 1.2 % (0.1-12.0); Hematocrit 40.6 % (37.0-47.0); Hemoglobin 13.1 g/dL (12.2-16.2); Lymphocytes # 1.9 K/mm3 (0.7-4.5); Lymphocytes % 25.4 % (10-50); Mean Corpuscular HGB Conc 32.3 g/dL (31.8-35.4); Mean Corpuscular Hemoglobin 30.1 pg (27.0-31.2); Mean Corpuscular Volume 93.2 fl (81-99); Mean Platelet Volume 8.2 fl (7.4-10.4); Monocytes # 0.5 K/mm3 (0.1-1.0); Monocytes % 6.8 % (1.7-9.3); Neutrophils % 65.9 % (37.0-80.0); Platelet Count 310 K/mm3 (142-424); Red Blood Count 4.35 M/mm3 (4.20-5.40); Red Cell Distribution Width 13.8 % (11.5-17.5); White Blood Count 7.6 K/mm3 (4.8-10.8)
[2021-03-27 13:20] LABS: Chloride 98 mmol/L (98-107); Sodium 128 mmol/L (136-145)
[2021-03-27 13:21] LABS: Potassium 3.9 mmoL/L (3.5-5.1)
[2021-03-27 13:23] LABS: Alanine Aminotransferase 28 U/L (12-78); Alkaline Phosphatase 136 U/L (38-126); Anion Gap 10.9 mEq/L (5-15); Aspartate Amino Transferase 42 U/L (14-36); Bilirubin,Total 0.6 mg/dl (0.2-1.3); Blood Urea Nitrogen 16 mg/dl (7-17); Carbon Dioxide 23 mmol/L (22.0-30.0); Creatinine Clearance Estimated 61 mL/min (50-200); Estimated Glomerular Filt Rate 83 ml/min (>60); GFR (African American) 101 ML/MIN (>60)
--- NOTE | 2021-03-27 13:23 | HMH.EDAMS ---
ED Disposition Clinical Impression: Confusion Disposition: Home, Self-Care Condition on Discharge: Good Instructions: DI for Altered Mental Status Additional Instructions: Please return back to emergency department if symptoms reoccur. Recommend following up with your primary care team this week regarding the intermittent memory changes. Please also discuss with your primary care regarding better blood pressure control. Please also discuss with your primary care team management for your chronic neck pain. Please return for numbness, weakness, worsening headache, visual changes, or any other concerning symptoms. Referrals: Dilma Pearson PA [Primary Care Provider] - - Critical Care Critical Care Time: No Attestation: On 03/27/21, the high probability of a clinically significant, sudden or life threatening deterioration of the following system(s) required my full and direct attention, intervention and personal management. The time I documented below is in addition to time spent performing reported procedures but includes the following listed in this critical care notation. Medical Decision Making - Medical Records Medical records reviewed: Yes: I reviewed the patient's medical records. - Jesús Inquiry Pt receiving controlled substance: No Vital Signs: 03/27/21 12:31 03/27/21 13:10 03/27/21 17:07 Temperature 98 F 98 F Temperature Source Oral Oral Pulse Rate 104 H 78 Pulse Rate [Radial] 110 H Respiratory Rate 24 16 Blood Pressure 203/99 H 126/74 Blood Pressure [Right Arm] 181/100 H Blood Pressure Mean [Right Arm] 127 Blood Pressure Position Sitting Blood Pressure Position [Right Arm] Sitting 02 Sat by Pulse Oximetry 97 95 Oxygen Delivery Method Room Air Room Air Room Air - Lab Data Lab results reviewed: Yes: I reviewed the patient's lab results. Lab Results 03/27/21 12:53: WBC 7.6, RBC 4.35, Hgb 13.1, Hct 40.6, MCV 93.2, MCH 30.1, MCHC 32.3, RDW 13.8, Plt Count 310, MPV 8.2, Neut % (Auto) 65.9, Lymph % (Auto) 25.4, [place] % (Auto) 6.8, Eos % (Auto) 1.2, Baso % (Auto) 0.6, Neut # (Auto) 5.0, Lymph # (Auto) 1.9, [place] # (Auto) 0.5, Eos # (Auto) 0.1, Baso # (Auto) 0.1 03/27/21 12:53: Sodium 128 L, Potassium 3.9, Chloride 98, Carbon Dioxide 23, Anion Gap 10.9, BUN 16, Creatinine 0.70, Estimated Creat Clear 61, Estimated GFR 83, Est GFR ( Amer) 101, Glucose 103 H, Calcium 9.0, Total Bilirubin 0.6, AST 42 H, ALT 28, Alkaline Phosphatase 136 H, Troponin I < 0.01, Total Protein 7.9, Albumin 4.5, Globulin 3.4 H, Albumin/Globulin Ratio 1.3 03/27/21 15:21: Urine Color Yellow, Urine Appearance Clear, Urine pH 7.5, Ur Specific [place] 1.015, Urine Protein Negative, Urine Glucose (UA) Negative, Urine Ketones 1+, Urine Blood Negative, Urine Nitrate Negative, Urine Bilirubin Negative, Urine Urobilinogen 0.2, Ur Leukocyte Esterase Negative, Urine RBC None, Urine WBC Occasional, Ur Squamous Epith Cells Occasional, Urine Bacteria None 03/27/21 15:47: Troponin I < 0.01 Result diagrams: 03/27/21 12:53 03/27/21 12:53 Orders (Tests/Meds): ED MEDICATIONS Discontinued Medications Generic Name Dose Route Start Last Admin Trade Name Freq PRN Reason Stop Dose Admin Acetaminophen 1,000 mg 03/27/21 15:10 03/27/21 15:10 Acetaminophen 500mg Tab PO 03/27/21 15:11 1,000 mg ONCE ONE Administration Ibuprofen 600 mg 03/27/21 15:10 03/27/21 15:51 Ibuprofen 600 Mg Tablet PO 03/27/21 15:11 600 mg ONCE ONE Administration ORDERS Category Date Time Status Urine Culture Stat Micro 03/27/21 15:25 Received Medical Decision Narrative: Miss Florence is a 65 yo female w/ no significant prior medical hx presenting with repetitive questioning and intermittent periods of confusion. Patient is afebrile and hemodynamically stable on arrival. Physcial exam patient has no focal deficits on exam. GCS 15. Patient alert and oriented to person, place and time. Patient tearful during exam. No in
[2021-03-27 13:24] LABS: Albumin Level 4.5 g/dl (3.5-5.0); Albumin/Globulin Ratio 1.3 (1.1-1.8); Globulin 3.4 g/dL (1.3-3.2); Glucose 103 mg/dl (74-100); Total Protein,Serum 7.9 g/dl (6.3-8.2)
[2021-03-27 13:55] LABS: Troponin I < 0.01 ng/ml (0.00-0.034)
--- NOTE | 2021-03-27 14:20 | PC.NURSE ---
PT SITTING UP TALKING WITH ASKING QUESTIONS OF HOW SHE GOT HERE , BUT AWAKE AND ALERT
[2021-03-27 15:26] LABS: Microscopic, Urine URINE MICROSCOPIC (MICROSCOPIC)
[2021-03-27 15:35] LABS: Appearance,Urine CLEAR (Clear); Bilirubin,Urine Negative (Negative); Blood, Urine Negative (Negative); Color,Urine YELLOW (Yellow); Glucose,Urine (UA) Negative (Negative); Ketones,Urine 1+ (Negative); Leukocyte Esterase,Urine Negative (Negative); Nitrate,Urine Negative (Negative); PH,Urine 7.5 (5.0-8.5); Protein,Urine Negative (Negative); Specific Gravity, Urine 1.015 (1.005-1.030); Urobilinogen,Urine 0.2 EU/dl (0.2)
[2021-03-27 16:06] LABS: Squamous Epithelial Cell,Urine Occasional #/hpf (0-5); WBC,Urine Occasional #/hpf (0-3)
[2021-03-27 16:15] LABS: Troponin I < 0.01 ng/ml (0.00-0.034)
[2021-03-27 17:07] VITALS: BP 126/74; PULSE 78; RESP 16; TEMP 36.6; O2SAT 98
== END 2021-03-27 17:10 | disposition home or self-care (01) ==
PROVIDERS: Emergency Provider Student in an Organized Health Care Education/Training Program; PCP Physician Assistant
DX: R41.82 Altered mental status, unspecified (principal); K21.9 Gastro-esophageal reflux disease without esophagitis; I10 Essential (primary) hypertension
CPT/HCPCS: 70450; 71045; 80053; 81001; 84484; 85025; 87086; 93005; 99283

== ENCOUNTER → 2021-04-21 12:11 | Outpatient (CLI) | payer MEDICARE, SELFPAY ==
--- NOTE | 2021-04-21 12:12 | MR_ITS ---
FINAL REPORT CLINICAL HISTORY: neck pain, radiating down right arm. pt states pain starts in the back of her skull and radiates to bilateral shoulders. nki. chronic pain. COMPARISON: 09/10/2019 FINDINGS: Multiplanar MR imaging of the cervical spine was performed without contrast. On the sagittal T2-weighted images, disc degeneration is seen throughout. There are mild chronic T3 and T4 compression fractures. No acute fracture is seen. There is mild anterolisthesis of C6 on C7. The cervical spinal cord has an unremarkable appearance without evidence of mass, edema or syrinx. No significant canal stenosis is identified. The cervicomedullary junction is normal. C2-3: There is no significant canal stenosis or neural foraminal narrowing. C3-4: Right uncovertebral osteophytes with moderate right neuroforaminal narrowing. C4-5: There is an annular disc bulge without significant canal stenosis or neural foraminal narrowing. C5-6: Annular disc bulge with mild left neuroforaminal narrowing. C6-7: There is an annular disc bulge without significant canal stenosis or neural foraminal narrowing. C7-T1: There is an annular disc bulge without significant canal stenosis or neural foraminal narrowing. IMPRESSION: Stable, multilevel degenerative changes. Chronic mild compression fractures of T3 and T4. Reviewed, Interpreted and Dictated by Alvaro Esquivel III, MD Transcribed by Alena Chaidez Authenticated by Alvaro Esquivel III, MD on 04/21/2021 04:54:46 PM [facility]
== END ==
PROVIDERS: PCP Physician Assistant; Visit Provider Physician Assistant
DX: M54.12 Radiculopathy, cervical region (principal)
CPT/HCPCS: 72141

== ENCOUNTER → 2021-04-24 11:24 | Outpatient (CLI) | payer MEDICARE, SELFPAY ==
[2021-04-24 12:09] LABS: Chloride 98 mmol/L (98-107); Potassium 4.4 mmoL/L (3.5-5.1); Sodium 133 mmol/L (136-145)
[2021-04-24 12:12] LABS: Blood Urea Nitrogen 14 mg/dl (7-17); Calcium 8.8 mg/dl (8.4-10.2); Carbon Dioxide 29 mmol/L (22.0-30.0); Estimated Glomerular Filt Rate 72 ml/min (>60); GFR (African American) 87 ML/MIN (>60); Glucose 86 mg/dl (74-100)
[2021-04-24 12:36] LABS: Anion Gap 9.4 mEq/L (5-15)
== END ==
PROVIDERS: Visit Provider Physician Assistant
DX: Z01.818 Encounter for other preprocedural examination (principal); R41.0 Disorientation, unspecified
CPT/HCPCS: 36415; 80048

== ENCOUNTER → 2021-04-27 12:37 | Outpatient (CLI) | payer MEDICARE, SELFPAY ==
--- NOTE | 2021-04-27 12:37 | CT_ITS ---
FINAL REPORT TECHNIQUE: Thin section axial CT with IV contrast supplemented with multiplanar reconstruction under CT angiogram protocol. 3-D reconstructions were performed. This study was performed with techniques to keep radiation doses as low as reasonably achievable (ALARA). Individualized dose reduction techniques using automated exposure control or adjustment of mA and/or kV according to the patient''s size were employed. CLINICAL HISTORY: confusion, memory loss, vertigo COMPARISON: 03/27/2021 FINDINGS: The ventricles are normal in size. There is no extra-axial fluid. There is no midline shift. There is no evidence of acute hemorrhage. IMPRESSION: No acute intracranial process. The distal vertebral, basilar and distal internal carotid arteries have an unremarkable appearance. No aneurysm is seen. Major intracranial vessels are patent without significant stenosis. IMPRESSION: No evidence of stenosis or major branch occlusion. Reviewed, Interpreted and Dictated by Alvaro Esquivel III, MD Transcribed by Shira Galicia Authenticated by Alvaro Esquivel III, MD on 04/27/2021 02:58:00 PM [facility]
--- NOTE | 2021-04-27 12:37 | CT_ITS ---
FINAL REPORT TECHNIQUE: Thin section axial CT with IV contrast supplemented with multiplanar reconstruction under CT angiogram protocol. This study was performed with techniques to keep radiation doses as low as reasonably achievable (ALARA). Individualized dose reduction techniques using automated exposure control or adjustment of mA and/or kV according to the patient''s size were employed. NASCET criteria was utilized during interpretation. CLINICAL HISTORY: confusion, memory loss, vertigo FINDINGS: Aortic arch: Arch shows no significant narrowing. Great vessel origins are widely patent. Right carotid: No significant stenosis is seen of the cervical common or internal carotid artery. Left carotid: No significant stenosis is seen of the cervical common or internal carotid artery. Vertebral: Left vertebral artery is dominant. No significant stenosis is present. IMPRESSION: No evidence of significant stenosis. Reviewed, Interpreted and Dictated by Alvaro Esquivel III, MD Transcribed by Shira Galicia Authenticated by Alvaro Esquivel III, MD on 04/27/2021 02:58:01 PM [facility]
== END ==
PROVIDERS: PCP Physician Assistant; Visit Provider Physician Assistant
DX: R41.0 Disorientation, unspecified (principal); R41.3 Other amnesia; R42 Dizziness and giddiness
CPT/HCPCS: 70496; 70498; Q9967

== ENCOUNTER 2021-06-17 19:39 | Emergency (ER) | payer MEDICARE, SELFPAY ==
--- NOTE | 2021-06-17 19:51 | XR_ITS ---
PROCEDURE INFORMATION: Exam: XR Right Ankle Exam date and time: 06/17/2021 7:49 PM Age: 66 years old Clinical indication: Pain; Ankle; Right; Additional info: Pain no known trauma TECHNIQUE: Imaging protocol: XR Right ankle. Views: 3 or more views. COMPARISON: CR ANKR3 ANKLE-RT-3 VIEWS 05/09/2016 12:34 PM FINDINGS: Bones/joints: Calcaneus enthesophytes. No acute fracture or dislocation. Soft tissues: Normal. IMPRESSION: No acute fracture or dislocation.
--- NOTE | 2021-06-17 19:51 | XR_ITS ---
PROCEDURE INFORMATION: Exam: XR Right Tibia and Fibula Exam date and time: 06/17/2021 7:49 PM Age: 66 years old Clinical indication: Pain; Lower leg; Right; Additional info: Pain no known trauma TECHNIQUE: Imaging protocol: XR Right tibia and fibula. Views: 2 views. COMPARISON: CR ANKR3 ANKLE-RT-3 VIEWS 05/09/2016 12:34 PM FINDINGS: Bones/joints: Calcaneus enthesophytes. No acute fracture or dislocation. Soft tissues: Normal. IMPRESSION: No acute fracture or dislocation.
--- NOTE | 2021-06-17 19:51 | XR_ITS ---
PROCEDURE INFORMATION: Exam: XR Right Knee Exam date and time: 06/17/2021 7:48 PM Age: 66 years old Clinical indication: Pain; Knee; Right; Additional info: Pain no known trauma TECHNIQUE: Imaging protocol: XR Right knee. Views: 3 views. COMPARISON: CR XR KNEE RT 3V 11/20/2019 11:30 AM FINDINGS: Bones/joints: Superior patellar enthesophyte, which appears irregular, but is unchanged from prior study. Mild tricompartmental osteoarthrosis. Mild to moderate demineralization of the bones. No acute fracture or dislocation. Soft tissues: Normal. IMPRESSION: No acute fracture or dislocation.
[2021-06-17 20:19] VITALS: BP 131/62; PULSE 94; RESP 18; TEMP 37; O2SAT 98; BMI 29.2
--- NOTE | 2021-06-17 20:35 | HMH.EDUTC ---
[facility] [place] Clinical Impression: Right leg pain, Right calf pain Disposition: Home, Self-Care Condition on Discharge: Good Instructions: DI for Leg Pain, DI for Deep Vein Thrombosis Additional Instructions: You will have the venous doppler of your leg tomorrow to make sure this is not a blood clot. Make sure you watch your phone and answer it. If you haven't heard from the hospital by 1030, please call here and talk to the nurse and let her help you. GO TO THE ER FOR ANY CHEST PAIN, SHORTNESS OF BREATH OR ANY WORSENING SYMPTOMS OR CONCERNS Once this is checked for a blood clot, then we can proceed from there to get a better diagnosis. If it is a blood clot, they will send you to the ER tomorrow after the test. Prescriptions: Ibuprofen [Ibuprofen 400mg Tablet] 400 mg PO Q6HP PRN #30 tab PRN Reason: Moderate Pain Transmission Status: Pending to [facility] #[id number] Referrals: Dilma Pearson PA [Primary Care Provider] - Time of Disposition: 21:21 Medical Decision Making - Medical Records Medical records reviewed: No: I reviewed the patient's medical records. - Jesús Inquiry Pt receiving controlled substance: No Vital Signs: 06/17/21 20:19 Temperature 98.6 F Temperature Source Oral Pulse Rate [Left] 94 H Respiratory Rate 18 Blood Pressure [Right Arm] 131/62 Blood Pressure Mean [Right Arm] 85 02 Sat by Pulse Oximetry 98 Orders (Tests/Meds): ED MEDICATIONS Discontinued Medications Generic Name Dose Route Start Last Admin Trade Name Freq PRN Reason Stop Dose Admin Enoxaparin Sodium 70 mg 06/17/21 20:48 06/17/21 20:55 Enoxaparin 80mg/0.8ml Syringe SQ 06/17/21 20:49 70 mg ONCE ONE Administration Medical Decision Narrative: Venous doppler is not available tonight, so lovenox sq was given and venous doppler order sent and set up for in the morning here at this hospital. [facility] [place] - General Stated complaint: Right knee down drawing, cantnot applies pressure Time Seen by Provider: 06/17/21 20:35 Mode of Arrival: Ambulatory Source of Information: Patient Limitations: No Limitations Description of Symptoms (Recalled from Triage Doc. by RN): pt c/o of right leg pain that came on today. she states that she did not fall or do anything to injure the knee. HEENT Symptoms (Recalled from RN notes): No Resp Symptoms (Recalled from RN notes): No Skin Symptoms (Recalled from RN notes): No MS Symptoms (Recalled from RN notes): Yes Functional Status (Recalled from RN notes): wnl - History of Present Illness Provider Complaint: She states that her right leg started hurt from behind her knee on down to her ankle along the back of her calf. She denies any known injury. She states that it started bothering her this morning and it slowly got worse through the day. She denies any history of blood clots or dvts. She denies any chest pain or shortness or breath or cough. - Related Data Previous Rx's Medication Instructions Recorded conjugated estrogens 0.625 mg/gram 0.3125 mg VAGINAL .TWICE WEEKLY 02/17/20 vaginal cream #30 g polyethylene glycol 3350 17 gram 17 g PO BID #100 each 05/04/20 oral powder packet gabapentin 100 mg capsule 100 mg PO HS #14 cap 10/21/20 tizanidine 4 mg tablet 4 mg PO Q8H PRN #20 tab 02/21/21 gabapentin 300 mg capsule 300 mg PO HS #30 cap 03/29/21 tramadol 50 mg tablet 50 mg PO BID PRN #30 tab 05/01/21 amoxicillin 875 mg tablet 875 mg PO BID #20 tab 05/19/21 benzonatate 200 mg capsule 200 mg PO TID PRN #30 cap 05/19/21 methylprednisolone 4 mg tablets in See Rx Instructions PO PER PKG DIR 05/19/21 a dose pack #21 tab atorvastatin 10 mg tablet 10 mg PO DAILY #30 tab 06/14/21 cholecalciferol (vitamin D3) 25 1,000 unit PO DAILY #90 cap 06/14/21 mcg (1,000 unit) capsule diltiazem HCl 300 mg See Rx Instructions .ROUTE 06/14/21 capsule,extended release 24 hr .COMPLEX #90 cap ergocalciferol (vitamin D2) 1,250 1,250 mcg PO WEEKLY #10 cap
[2021-06-17 21:13] VITALS: BP 131/62; PULSE 94; RESP 18; TEMP 37
== END 2021-06-17 21:24 | disposition home or self-care (01) ==
PROVIDERS: Emergency Provider Nurse Practitioner Family; PCP Physician Assistant
DX: M79.604 Pain in right leg; M79.661 Pain in right lower leg; Z79.899 Other long term (current) drug therapy; Z88.6 Allergy status to analgesic agent; Z88.8 Allergy status to other drugs, medicaments and biological substances
CPT/HCPCS: 73562; 73590; 73610; 99213; G0463

== ENCOUNTER → 2021-06-18 11:02 | Outpatient (CLI) | payer MEDICARE, SELFPAY ==
--- NOTE | 2021-06-18 11:05 | CA_ITS ---
FINAL REPORT TECHNIQUE: Multiple transverse and longitudinal images were performed of right the femoral-popliteal deep venous system with augmentation and compression maneuvers. CLINICAL HISTORY: PAIN RT POST. KNEE INTO CALF X 1 DAY,NKI,NO SWELLING FINDINGS: Right lower extremity duplex ultrasound demonstrates normal flow in the deep venous system. There is no abnormal echogenicity to suggest thrombus. There is normal compression and augmentation. IMPRESSION: No evidence of right DVT. Reviewed, Interpreted and Dictated by Alvaro Esquivel III, MD Transcribed by Alena Chaidez Authenticated by Alvaro Esquivel III, MD on 06/18/2021 01:22:51 PM [facility]
== END ==
PROVIDERS: PCP Physician Assistant; Visit Provider Nurse Practitioner
DX: M79.604 Pain in right leg (principal)
CPT/HCPCS: 93971

== ENCOUNTER → 2021-08-28 16:03 | Outpatient (CLI) | payer MEDICARE, SELFPAY | PROVIDERS: PCP Physician Assistant; Visit Provider Podiatrist | DX: M79.672 Pain in left foot (principal); M79.671 Pain in right foot | CPT/HCPCS: 87102; 87206; 87220; 88304; 88312 ==

== ENCOUNTER → 2021-08-29 12:20 | Outpatient (CLI) | payer MEDICARE, SELFPAY ==
--- NOTE | 2021-08-29 12:23 | XR_ITS ---
FINAL REPORT CLINICAL HISTORY: pain FINDINGS: RIGHT FOOT Three views of the right foot demonstrate no acute fracture or dislocation. There is mild degenerative change with mild hallux valgus deformity. There is pes planus. There are calcaneal spurs. The soft tissues are unremarkable. IMPRESSION: Degenerative change with no acute bony abnormality. Reviewed, Interpreted and Dictated by Alvaro Esquivel III, MD Transcribed by Candi Martin Authenticated and . [facility]
--- NOTE | 2021-08-29 12:23 | XR_ITS ---
FINAL REPORT CLINICAL HISTORY: pain FINDINGS: LEFT FOOT Three views of the left foot demonstrate no acute fracture or dislocation. There is mild degenerative change with mild hallux valgus deformity. There is pes planus. There are calcaneal spurs. The soft tissues are unremarkable. IMPRESSION: Degenerative change with no acute bony abnormality. Reviewed, Interpreted and Dictated by Alvaro Esquivel III, MD Transcribed by Candi Martin Authenticated and [facility]
== END ==
PROVIDERS: PCP Physician Assistant; Visit Provider Podiatrist
DX: M79.672 Pain in left foot (principal); M79.671 Pain in right foot
CPT/HCPCS: 73630

== ENCOUNTER → 2021-10-11 15:22 | Outpatient (CLI) | payer MEDICARE, SELFPAY ==
--- NOTE | 2021-10-11 15:26 | XR_ITS ---
FINAL REPORT CLINICAL HISTORY: fall, left rib pain FINDINGS: LEFT RIBS Four views of the left ribs show irregularity of the left 4th rib end which is worrisome for fracture but of uncertain age. There is no pneumothorax or pleural fluid collection. The frontal chest radiograph is unremarkable. IMPRESSION: Findings worrisome for fracture of the left 4th rib end of uncertain age. No pneumothorax. Reviewed, Interpreted and Dictated by Alvaro Esquivel III, MD Transcribed by Candi Martin Authenticated and [facility]
== END ==
PROVIDERS: PCP Physician Assistant; Visit Provider Physician Assistant
DX: R07.81 Pleurodynia (principal)
CPT/HCPCS: 71101

== ENCOUNTER → 2021-12-22 08:17 | Outpatient (CLI) | payer MEDICARE, SELFPAY ==
--- NOTE | 2021-12-22 08:22 | MM_ITS ---
PROCEDURE INFORMATION: Exam: MG Bilateral Screening 3D Mammography Exam date and time: 12/22/2021 8:19 AM Age: 66 years old Clinical indication: Screening examination. Her mother had breast cancer at age 60, and a maternal aunt had breast cancer. TECHNIQUE: Imaging protocol: Bilateral Screening tomosynthesis and 2D mammography including computer-aided detection (CAD) when performed. COMPARISON: 1. MG MM DIG SCREENING MAMM BI W/CAD 12/20/2020 10:43 AM 2. MG MM DIG SCREENING MAMM BI W/CAD 11/30/2019 11:06 AM 3. MG Screening-Bilateral Mammography 10/16/2017 9:34 AM 4. MG DMSB DIG MAMM-SCREEN [place] 07/29/2012 9:03 AM FINDINGS: MAMMOGRAPHY: Breast composition: There are scattered areas of fibroglandular density. Mass: No suspicious mass. Architectural distortion: None. Calcifications: No suspicious calcifications. Asymmetric density: None. Skin thickening: None. Axillary adenopathy: None. IMPRESSION: No mammographic evidence of malignancy. Annual screening is recommended unless otherwise clinically indicated. ASSESSMENT: BI-RADS Category 1: Negative
== END ==
PROVIDERS: PCP Physician Assistant; Visit Provider Physician Assistant
DX: Z12.31 Encounter for screening mammogram for malignant neoplasm of breast (principal)
CPT/HCPCS: 77063; 77067

== ENCOUNTER → 2022-01-18 08:56 | Outpatient (CLI) | payer MEDICARE, SELFPAY ==
--- NOTE | 2022-01-18 08:57 | XR_ITS ---
FINAL REPORT TECHNIQUE: Bone densitometry calculations of the lumbar spine and left hip were obtained. CLINICAL HISTORY: .post menopausal FINDINGS: DEXA BONE DENSITY AXIAL SKELETON Using L1-4, the bone mineral density of the spine is 1.190 g/cm2, corresponding to T-score of 1.3. Note these values may be falsely elevated secondary to hypertrophic change. Using the left hip, the bone mineral density of the femoral neck is 0.760 g/cm2, corresponding to a T-score of -1.5. NOTE: T-score: Standard deviation compared with peak bone mass of young adult mean. *Following the recommendations of the International Society of Bone densitometry, classification of hip BMD is based on the lower of two T-scores; total hip or femoral neck. IMPRESSION: Diminished bone mineral density of the left hip consistent with osteopenia. FRAX 10 year fracture risk is 0.6% for a hip fracture and 8% for a major osteoporotic fracture. Reviewed, Interpreted and Dictated by Alvaro Esquivel III, MD Transcribed by Candi Martin Authenticated and [facility]
--- NOTE | 2022-01-18 09:39 | MR_ITS ---
FINAL REPORT CLINICAL HISTORY: compression fracture. back pain since fall 3 months ago. FINDINGS: Multiplanar MR imaging of the thoracic spine was performed without contrast. On the sagittal T2-weighted images, disc degeneration is seen at multiple levels. There are moderate chronic T9 and mild chronic T3 compression fractures. No acute fracture is identified. The vertebral alignment is normal. No bony mass is identified. The thoracic spinal cord has an unremarkable appearance without evidence of mass, edema or syrinx. There is no evidence of canal stenosis or cord compression. On the axial images, there are multiple disc bulges with small anterior osteophytes. No disc protrusions are identified. There is no evidence of significant canal stenosis. No paraspinous soft tissue abnormality is seen. IMPRESSION: Chronic compression fractures of T3 and T9. No acute fracture identified. Multilevel degenerative disc disease with bulges and small anterior osteophytes. Reviewed, Interpreted and Dictated by Alvaro Esquivel III, MD Transcribed by Candi Martin Authenticated and [facility]
== END ==
LOC: RAD 08:57
PROVIDERS: PCP Physician Assistant; Visit Provider Physician Assistant
DX: Z78.0 Asymptomatic menopausal state; S22.030A Wedge compression fracture of third thoracic vertebra, initial encounter for closed fracture; S22.070A Wedge compression fracture of T9-T10 vertebra, initial encounter for closed fracture
CPT/HCPCS: 72146; 77080

== ENCOUNTER → 2022-01-19 10:29 | Outpatient (CLI) | payer MEDICARE, SELFPAY | PROVIDERS: PCP Physician Assistant; Visit Provider Physician Assistant | DX: G47.33 Obstructive sleep apnea (adult) (pediatric) (principal); R06.83 Snoring; R51.9 Headache, unspecified; R40.0 Somnolence; I10 Essential (primary) hypertension | CPT/HCPCS: G0399 ==

== ENCOUNTER → 2022-02-27 14:13 | Outpatient (CLI) | payer MEDICARE, SELFPAY ==
[2022-02-27 16:07] LABS: Blood Urea Nitrogen 21 mg/dl (7-17); Estimated Glomerular Filt Rate 62 ml/min (>60); GFR (African American) 75 ML/MIN (>60)
[2022-03-01 07:38] LABS: RA Latex Turbid. <10.0 IU/mL (<14.0)
[2022-03-01 17:05] LABS: Angiotensin Converting Enzyme <15 U/L (14-82); Anti-Cardio Antibody IgM 12 MPL U/mL (0-12); Anti-Cardiolipin Antibody IgG <9 GPL U/mL (0-14); Anti-DNA (DS) Ab Qn 1 IU/mL (0-9); Anticardiolipin Ab,IgA,Qn <9 APL U/mL (0-11); Cytoplasmic (C-ANCA) <1:20 titer (Neg:<1:20); Perinuclear (P-ANCA) <1:20 titer (Neg:<1:20)
[2022-03-01 21:17] LABS: QuantiFERON-TB Gold Plus Negative (Negative)
[2022-03-02 05:15] LABS: Beta-2 Glycoprotein I Ab, IgA <9 (0-25); Beta-2 Glycoprotein I Ab, IgG 22 (0-20)
[2022-03-02 16:12] LABS: Beta-2 Glycoprotein I Ab, IgM >150 (0-32)
[2022-03-03 22:26] LABS: Antinuclear Antibodies, IFA POSITIVE
== END ==
PROVIDERS: PCP Physician Assistant; Visit Provider Ophthalmology
DX: H43.89 Other disorders of vitreous body (principal)
CPT/HCPCS: 36415; 82164; 82565; 84520; 86038; 86146; 86147; 86225; 86235; 86256; 86431; 86480

== ENCOUNTER → 2022-05-31 08:41 | Outpatient (CLI) | payer MEDICARE, SELFPAY ==
[2022-05-31 09:42] LABS: Basophils # 0.1 K/mm3 (0-0.2); Basophils % 0.4 % (0.1-2.0); Eosinophils # 0.3 K/mm3 (0.0-0.4); Eosinophils % 2.6 % (0.1-12.0); Hemoglobin 12.1 g/dL (12.2-16.2); Lymphocytes # 2.5 K/mm3 (0.7-4.5); Lymphocytes % 21.7 % (10-50); Mean Corpuscular HGB Conc 31.7 g/dL (31.8-35.4); Mean Corpuscular Hemoglobin 28.7 pg (27.0-31.2); Mean Corpuscular Volume 90.5 fl (81-99); Mean Platelet Volume 7.7 fl (7.4-10.4); Monocytes # 0.9 K/mm3 (0.1-1.0); Monocytes % 7.6 % (1.7-9.3); Neutrophils % 67.7 % (37.0-80.0); Platelet Count 337 K/mm3 (142-424); Red Cell Distribution Width 14.2 % (11.5-17.5); White Blood Count 11.8 K/mm3 (4.8-10.8)
[2022-05-31 10:19] LABS: Alanine Aminotransferase 20 U/L (12-78); Albumin Level 4.3 g/dl (3.5-5.0); Albumin/Globulin Ratio 1.4 (1.1-1.8); Alkaline Phosphatase 128 U/L (38-126); Anion Gap 13.8 mEq/L (5-15); Aspartate Amino Transferase 28 U/L (14-36); Bilirubin,Total 0.5 mg/dl (0.2-1.3); Blood Urea Nitrogen 16 mg/dl (7-17); Calcium 9.5 mg/dl (8.4-10.2); Carbon Dioxide 27 mmol/L (22.0-30.0); Chloride 100 mmol/L (98-107); Estimated Glomerular Filt Rate 62 ml/min (>60); GFR (African American) 75 ML/MIN (>60); Globulin 3.1 g/dL (1.3-3.2); Glucose 88 mg/dl (74-100); Potassium 4.8 mmoL/L (3.5-5.1); Sodium 136 mmol/L (136-145); Total Protein,Serum 7.4 g/dl (6.3-8.2)
[2022-05-31 10:24] LABS: C-Reactive Protein 2.2 mg/L (0-4)
[2022-06-01 17:32] LABS: Anticardiolipin Ab,IgA,Qn <9 APL U/mL (0-11)
[2022-06-01 17:32] LABS: Angiotensin Converting Enzyme 36 U/L (14-82)
[2022-06-06 15:10] LABS: D001-IgE D pteronyssinus <0.10 kU/L (Class 0); D002-IgE D farinae <0.10 kU/L (Class 0); E001-IgE Cat Dander <0.10 kU/L (Class 0); E005-IgE Dog Dander <0.10 kU/L (Class 0); E072-IgE Mouse Urine <0.10 kU/L (Class 0); G002-IgE Bermuda Grass <0.10 kU/L (Class 0); G006-IgE Timothy Grass <0.10 kU/L (Class 0); I006-IgE Cockroach, German <0.10 kU/L (Class 0); Immunoglobulin E, Total 15 IU/mL (6-495); M001-IgE Penicillium chrysogen <0.10 kU/L (Class 0); M002-IgE Cladosporium herbarum <0.10 kU/L (Class 0); M003-IgE Aspergillus fumigatus <0.10 kU/L (Class 0); M006-IgE Alternaria alternata <0.10 kU/L (Class 0); T001-IgE Maple/Box Elder <0.10 kU/L (Class 0); T003-IgE Common Silver Birch <0.10 kU/L (Class 0); T006-IgE Cedar, Mountain <0.10 kU/L (Class 0); T007-IgE Oak, White <0.10 kU/L (Class 0); T008-IgE Elm, American <0.10 kU/L (Class 0); T010-IgE Walnut <0.10 kU/L (Class 0); T011-IgE Maple Leaf Sycamore <0.10 kU/L (Class 0); T014-IgE Cottonwood <0.10 kU/L (Class 0); T015-IgE Ash, White <0.10 kU/L (Class 0); T022-IgE Pecan, Hickory <0.10 kU/L (Class 0); T070-IgE White Mulberry <0.10 kU/L (Class 0); W001-IgE Ragweed, Short <0.10 kU/L (Class 0); W011-IgE Thistle, Russian <0.10 kU/L (Class 0); W014-IgE Pigweed, Common <0.10 kU/L (Class 0); W018-IgE Sheep Sorrel <0.10 kU/L (Class 0)
== END ==
PROVIDERS: Internal Medicine Pulmonary Disease; PCP Physician Assistant; Visit Provider Ophthalmology
DX: R06.09 Other forms of dyspnea; J45.909 Unspecified asthma, uncomplicated; J84.9 Interstitial pulmonary disease, unspecified
CPT/HCPCS: 36415; 80053; 82164; 82785; 85025; 86003; 86140; 86147

== ENCOUNTER → 2022-07-03 07:54 | Outpatient (CLI) | payer MEDICARE, SELFPAY ==
--- NOTE | 2022-07-03 09:36 | CT_ITS ---
FINAL REPORT CLINICAL HISTORY: . SHORTNESS OF BREATH COMPARISON: December 2021 FINDINGS: Axial images through the chest was performed by computed tomography. Sagittal and coronal reformatted images were obtained and reviewed. High-resolution technique was performed with supine inspiration and expiration sequences and prone inspiration images. There are small mediastinal lymph nodes. There is no axillary mass or adenopathy. There is moderate coronary artery calcification. There is no emphysema, bronchiectasis or interstitial lung disease. There are calcified granulomas in the left lower lobe. A 5 mm inferior lingula nodule is stable. There are multiple small nodular opacities and small ground-glass nodules in the right upper lobe that are likely infectious or inflammatory. There is mild scarring in the lung apices. Images through the upper abdomen demonstrate cholecystectomy. There is mild bilateral renal scarring. IMPRESSION: Multiple small nodular opacities and small ground-glass nodules in the right upper lobe are likely infectious or inflammatory. Consider follow-up chest CT in 3-6 months. Reviewed, Interpreted and Dictated by Alvaro Esquivel III, MD Transcribed by Darryn Trent Authenticated and [facility]
== END ==
LOC: RT 07:54
PROVIDERS: PCP Physician Assistant; Visit Provider Internal Medicine Pulmonary Disease
DX: R06.09 Other forms of dyspnea (principal); J84.9 Interstitial pulmonary disease, unspecified
CPT/HCPCS: 71250; 94060; 94618; 94727; 94729

== ENCOUNTER 2022-09-20 14:19 | Emergency (ER) | payer MEDICARE, SELFPAY ==
[2022-09-20 14:20] VITALS: BP 123/75; PULSE 81; RESP 20; TEMP 37; O2SAT 98; BMI 30.9
--- NOTE | 2022-09-20 14:31 | EXP.UTC ---
Discharge Plan Disposition Patient Disposition: Home, Self-Care Condition: Good Prescriptions Prescriptions: New methocarbamol 500 mg tablet 500 mg PO TID PRN (Reason: muscle spasm) Qty: 12 0RF methylprednisolone [Medrol (Neil)] 4 mg tablets,dose pack See Rx Instructions .Route .COMPLEX 6 Days Qty: 21 0RF Rx Instructions: taper pack; No Action tramadol 50 mg tablet 50 mg PO BID PRN (Reason: pain) Qty: 30 0RF cholecalciferol (vitamin D3) 25 mcg (1,000 unit) capsule 1,000 unit PO DAILY Qty: 90 1RF Premarin 0.625 mg/gram cream 0.3125 mg VAGINAL .TWICE WEEKLY Qty: 30 4RF ergocalciferol (vitamin D2) 1,250 mcg (50,000 unit) capsule 1,250 mcg PO WEEKLY Qty: 10 2RF famotidine 40 mg tablet 40 mg PO DAILY Qty: 30 2RF fluoxetine 40 mg capsule See Rx Instructions .ROUTE .COMPLEX Qty: 90 0RF Dose Instruction: TAKE 1 CAPSULE BY MOUTH DAILY FOR DEPRESSION Rx Instructions: TAKE 1 CAPSULE BY MOUTH DAILY FOR DEPRESSION fluticasone propionate 50 mcg/actuation spray,suspension 1 spray intranasal DAILY Qty: 16 3RF loratadine 10 mg tablet 10 mg PO DAILY Qty: 90 1RF diltiazem HCl 300 mg capsule,extended release 24hr See Rx Instructions .ROUTE .COMPLEX Qty: 90 0RF Dose Instruction: TAKE 1 CAPSULE BY MOUTH EVERY DAY FOR HEART RATE Rx Instructions: TAKE 1 CAPSULE BY MOUTH EVERY DAY FOR HEART RATE lisinopril 20 mg tablet See Rx Instructions .ROUTE .COMPLEX Qty: 90 0RF Dose Instruction: TAKE 1 TABLET BY MOUTH DAILY FOR HIGH BLOOD PRESSURE Rx Instructions: TAKE 1 TABLET BY MOUTH DAILY FOR HIGH BLOOD PRESSURE tizanidine 4 mg tablet See Rx Instructions .ROUTE .COMPLEX Qty: 20 0RF Dose Instruction: TAKE 1 TABLET BY MOUTH EVERY 8 HOURS NEEDED FOR MUSCLE SPASMS Rx Instructions: TAKE 1 TABLET BY MOUTH EVERY 8 HOURS NEEDED FOR MUSCLE SPASMS amlodipine 2.5 mg tablet See Rx Instructions .ROUTE .COMPLEX Qty: 90 0RF Dose Instruction: TAKE 1 TABLET BY MOUTH DAILY Rx Instructions: TAKE 1 TABLET BY MOUTH DAILY lorazepam 1 mg tablet 1 mg PO BIDP PRN (Reason: anxiety) Qty: 60 0RF Referrals Follow up/Referrals: Dilma Pearson PA [Primary Care Provider] - See instructions Activity Restrictions/Add. Instructions Additional Instructions/Restrictions: *Ibuprofen brian 6 hours with meal as needed for pain/inflammation *Not additional anti-inflammatory like motrin, aleve, advil with the above amount of ibuprofen. You can still take Tylenol every 4 hours as needed if you need something else for pain *Ice 20 minutes every 2 hours for the first 48 hours after the initial injury followed by moist heat every 20 minutes 3-4 times a day to affected area *Muscle relaxer every 8 hours as needed for muscle spasms but remember, it WILL cause drowsiness You cannot take it and drive, operate machinery or care for small children. *Keep this area active, no movement leads to more stiffness, However take it easy and avoid heavy lifting pushing or pulling *Follow up with you family doctor if no improvement for further treatment Straight to ER if any Cardic symptoms, chest pain or any life threatening symptoms Clinical Impressions Clinical Impression: Muscle spasm Instructions Patient Instructions: DI for Shoulder Pain, Methocarbamol Discharge ED Provider: Brandy Ferguson [facility] General Stated complaint: Lt shoulder pain, no accident Mode of Arrival: Ambulatory Source of Information: Patient Limitations: No Limitations Time Seen by Provider: 09/20/22 14:31 Description of Symptoms (Recalled from Triage Doc. by RN): PATIENT C/O LEFT SHOULDER PAIN THAT RADIATES DOWN ARM AND INTO CLAVICLE THAT SHE STATES HAS BEEN GOING ON A WHILE. PATIENT STATES PAIN IS WORSE WITH MOVEMENT HEENT Symptoms (Recalled from RN notes): No Resp Symptoms (Recalled from RN notes): No Skin Symptoms (Recalled from RN notes): No
--- NOTE | 2022-09-20 14:39 | XR_ITS ---
FINAL REPORT CLINICAL HISTORY: shoulder pain with movement FINDINGS: LEFT SHOULDER 3 views of the left shoulder were obtained. There is no acute fracture or dislocation. Visualized joint spaces are normally aligned. There are mild degenerative changes of the acromioclavicular and glenohumeral joints. Soft tissues are unremarkable. IMPRESSION: No acute bony abnormality. Reviewed, Interpreted and Dictated by Alvaro Esquivel III, MD Transcribed by Alena Chaidez Authenticated and [facility]
[2022-09-20 15:29] VITALS: BP 123/75; PULSE 81; RESP 20; TEMP 37; O2SAT 98
== END 2022-09-20 16:15 | disposition home or self-care (01) ==
PROVIDERS: Emergency Provider Nurse Practitioner; PCP Physician Assistant
DX: M25.512 Pain in left shoulder (principal); M62.838 Other muscle spasm; I10 Essential (primary) hypertension; K21.9 Gastro-esophageal reflux disease without esophagitis; D86.9 Sarcoidosis, unspecified; G47.19 Other hypersomnia; F41.1 Generalized anxiety disorder; F32.A Depression, unspecified; J30.9 Allergic rhinitis, unspecified; G47.33 Obstructive sleep apnea (adult) (pediatric)
CPT/HCPCS: 73030; 99212; 99214; G0463

== ENCOUNTER → 2022-11-14 12:44 | Outpatient (CLI) | payer MEDICARE, SELFPAY ==
--- NOTE | 2022-11-14 12:44 | MR_ITS ---
FINAL REPORT CLINICAL HISTORY: left shoulder pain FINDINGS: Multiplanar MR imaging of the left shoulder was performed without contrast. There is supraspinatus tendinosis. A full-thickness tear is seen at the anterior footprint. A partial-thickness articular surface tear is seen of the distal infraspinatus tendon involving greater than 50% of the thickness of the tendon. There is a partial-thickness articular surface tear of the distal subscapularis tendon involving greater than 50% of the thickness of the tendon. There is mild AC joint arthrosis. Moderate fluid is present in the subacromial/subdeltoid bursa. The glenoid labrum is intact. There is medial dislocation of the long head of the biceps tendon. A moderate glenohumeral joint effusion is seen. There is no evidence of fracture or dislocation. Several subchondral cysts are seen in the superior humeral head. The musculature is intact. There is no evidence of soft tissue mass. IMPRESSION: Full-thickness tear at the footprint of the supraspinatus tendon and high-grade partial-thickness articular surface tears of the distal infraspinatus and subscapularis tendons. Medial dislocation of the long head of the biceps tendon. Authenticated and [facility]
== END ==
LOC: RAD 12:44
PROVIDERS: PCP Physician Assistant; Visit Provider Physician Assistant
DX: M25.512 Pain in left shoulder (principal)
CPT/HCPCS: 73221

== ENCOUNTER → 2023-01-01 07:57 | Outpatient (CLI) | payer MEDICARE, SELFPAY ==
--- NOTE | 2023-01-01 07:57 | MM_ITS ---
PROCEDURE INFORMATION: Exam: MG Bilateral Screening 3D Mammography Exam date and time: 01/01/2023 7:55 AM Age: 67 years old Clinical indication: Screening examination TECHNIQUE: Imaging protocol: Bilateral Screening tomosynthesis and 2D mammography including computer-aided detection (CAD) when performed. COMPARISON: 1. MG MM DIG SCREENING MAMM BI W/CAD 12/22/2021 8:19 AM 2. MG MM DIG SCREENING MAMM BI W/CAD 12/20/2020 10:43 AM FINDINGS: MAMMOGRAPHY: Breast composition: There are scattered areas of fibroglandular density. Mass: None. Architectural distortion: None. Calcifications: No suspicious calcifications. Asymmetric density: None. Skin thickening: None. Axillary adenopathy: None. IMPRESSION: No mammographic evidence of malignancy. Annual screening is recommended unless otherwise clinically indicated. ASSESSMENT: BI-RADS Category 1: Negative
== END ==
PROVIDERS: PCP Physician Assistant; Visit Provider Physician Assistant
DX: Z12.31 Encounter for screening mammogram for malignant neoplasm of breast (principal)
CPT/HCPCS: 77063; 77067

== ENCOUNTER 2023-04-30 10:00 | Outpatient (RCR) | payer MEDICARE, SELFPAY | END 2023-05-08 14:30 | disposition home or self-care (01) | LOC: PT 10:00 | PROVIDERS: PCP Physician Assistant; Visit Provider Orthopaedic Surgery Adult Reconstructive Orthopaedic Surgery | DX: M75.122 Complete rotator cuff tear or rupture of left shoulder, not specified as traumatic (principal); M25.512 Pain in left shoulder | CPT/HCPCS: 97010; 97014; 97110; 97140; 97163; 97164; 97530; G0283 ==

== ENCOUNTER 2023-06-03 18:00 | Outpatient (CLI) | payer MEDICARE, SELFPAY ==
[2023-06-03 18:55] LABS: Basophils % 0.5 % (0.1-2.0); Eosinophils # 0.2 K/mm3 (0.0-0.4); Eosinophils % 2.2 % (0.1-12.0); Hematocrit 40.6 % (37.0-47.0); Hemoglobin 12.7 g/dL (12.2-16.2); Lymphocytes # 2.1 K/mm3 (0.7-4.5); Lymphocytes % 23.4 % (10-50); Mean Corpuscular HGB Conc 31.4 g/dL (31.8-35.4); Mean Corpuscular Hemoglobin 29.3 pg (27.0-31.2); Mean Corpuscular Volume 93.4 fl (81-99); Mean Platelet Volume 10.4 fl (7.4-10.4); Monocytes # 0.7 K/mm3 (0.1-1.0); Monocytes % 7.8 % (1.7-9.3); Neutrophils # 5.9 K/mm3 (1.8-7.8); Neutrophils % 66.1 % (37.0-80.0); Platelet Count 296 K/mm3 (142-424); Red Blood Count 4.35 M/mm3 (4.20-5.40); White Blood Count 8.9 K/mm3 (4.8-10.8)
[2023-06-03 19:56] LABS: Hemoglobin A1C 5.7 % (4.0-6.0)
[2023-06-03 20:08] LABS: Alanine Aminotransferase 19 U/L (12-78); Albumin Level 4.5 g/dl (3.5-5.0); Albumin/Globulin Ratio 1.3 (1.1-1.8); Alkaline Phosphatase 178 U/L (38-126); Anion Gap 11.7 mEq/L (5-15); Aspartate Amino Transferase 33 U/L (14-36); Bilirubin,Total 0.5 mg/dl (0.2-1.3); Blood Urea Nitrogen 12 mg/dl (7-17); Calcium 9.7 mg/dl (8.4-10.2); Carbon Dioxide 26 mmol/L (22.0-30.0); Chloride 103 mmol/L (98-107); Chol/HDL Ratio 4.9 (1-3.5); Cholesterol 304 mg/dl (140-200); Estimated Glomerular Filt Rate 71 ml/min (>60); GFR (African American) 86 ML/MIN (>60); Globulin 3.4 g/dL (1.3-3.2); Glucose 89 mg/dl (74-100); HDL Cholesterol 62 mg/dl (40-60); Potassium 4.7 mmoL/L (3.5-5.1); Sodium 136 mmol/L (136-145); Total Protein,Serum 7.9 g/dl (6.3-8.2); Triglycerides 117 mg/dl (30-150); VLDL Cholesterol 23 mg/dL (0-40)
[2023-06-03 20:22] LABS: Direct LDL Cholesterol 150.59 mg/dL (100-129)
[2023-06-03 20:26] LABS: 25-OH Vitamin D, Total 68.6 ng/mL (30-100)
[2023-06-03 20:39] LABS: Thyroid Stimulating Hormone 0.78 uIU/mL (0.465-4.68)
== END 2023-06-03 23:59 | disposition home or self-care (01) ==
LOC: LAB.DROPOF 06-04 09:03
PROVIDERS: Visit Provider Family Medicine
DX: E55.9 Vitamin D deficiency, unspecified (principal); F41.9 Anxiety disorder, unspecified; F32.A Depression, unspecified; R06.09 Other forms of dyspnea; E78.5 Hyperlipidemia, unspecified; R73.09 Other abnormal glucose; Z68.30 Body mass index [BMI] 30.0-30.9, adult
CPT/HCPCS: 80053; 80061; 82306; 83036; 84443; 85025

== ENCOUNTER 2023-07-29 08:05 | Outpatient (CLI) | payer MEDICARE, SELFPAY ==
[2023-07-29 08:50] VITALS: PULSE 79; PULSE 82
[2023-07-29] MEDS: ALBUTEROL 0.083% 2.5 MG/3 ML NEB IH (08:50)
--- NOTE | 2023-07-29 09:57 | CT_ITS ---
FINAL REPORT TECHNIQUE: Axial imaging of the chest was obtained without contrast. Reformatted images were also obtained and reviewed.This study was performed with techniques to keep radiation doses as low as reasonably achievable, (ALARA). Individualized dose reduction technique using automated exposure control or adjustment of mA and/or kV according to the patient's size were employed. CLINICAL HISTORY: Nodules/Lymphadenopathy f/u nodules COMPARISON: 07/03/2022 FINDINGS: There is no axillary adenopathy. There is no hilar or mediastinal mass or adenopathy. Heart size is normal. There is no pericardial or pleural effusion. Limited images of the upper abdomen are unremarkable. There is a tiny cluster of peripheral right upper lobe nodules measuring 3 mm or less which are stable. Oval nodule in the lingula measuring up to 4 mm is also unchanged. These are favored represent granulomas given evidence of old granulomatous disease. No new mass or nodule is identified. IMPRESSION: Stable, benign nodules, favor infectious/inflammatory. Reviewed, Interpreted and Dictated by Marce Harrington MD Transcribed by Alena Chaidez Authenticated and [facility]
== END 2023-07-29 23:59 | disposition home or self-care (01) ==
LOC: RT 08:06
PROVIDERS: PCP Physician Assistant; Visit Provider Internal Medicine Pulmonary Disease
DX: R06.09 Other forms of dyspnea (principal); R91.8 Other nonspecific abnormal finding of lung field; J84.9 Interstitial pulmonary disease, unspecified
CPT/HCPCS: 71250; 94060; 94618; 94640; 94726; 94729; J7613

== ENCOUNTER 2023-08-05 11:44 | Outpatient (CLI) | payer MEDICARE, SELFPAY ==
[2023-08-05 18:55] LABS: Basophils # 0.1 K/mm3 (0-0.2); Basophils % 1.4 % (0.1-2.0); Eosinophils # 0.1 K/mm3 (0.0-0.4); Eosinophils % 1.7 % (0.1-12.0); Hemoglobin 12.7 g/dL (12.2-16.2); Lymphocytes # 2.1 K/mm3 (0.7-4.5); Lymphocytes % 30.7 % (10-50); Mean Corpuscular HGB Conc 31.7 g/dL (31.8-35.4); Mean Corpuscular Hemoglobin 29.5 pg (27.0-31.2); Mean Corpuscular Volume 93.1 fl (81-99); Mean Platelet Volume 9.9 fl (7.4-10.4); Monocytes # 0.6 K/mm3 (0.1-1.0); Monocytes % 8.1 % (1.7-9.3); Neutrophils # 3.9 K/mm3 (1.8-7.8); Platelet Count 352 K/mm3 (142-424); Red Cell Distribution Width 15.1 % (11.5-17.5); White Blood Count 6.7 K/mm3 (4.8-10.8)
[2023-08-05 19:23] LABS: Chloride 101 mmol/L (98-107); Potassium 4.8 mmoL/L (3.5-5.1); Sodium 136 mmol/L (136-145)
[2023-08-05 19:26] LABS: Alanine Aminotransferase 21 U/L (12-78); Albumin Level 4.7 g/dl (3.5-5.0); Albumin/Globulin Ratio 1.4 (1.1-1.8); Alkaline Phosphatase 133 U/L (38-126); Anion Gap 14.8 mEq/L (5-15); Aspartate Amino Transferase 32 U/L (14-36); Bilirubin,Total 0.4 mg/dl (0.2-1.3); Blood Urea Nitrogen 17 mg/dl (7-17); Calcium 10.3 mg/dl (8.4-10.2); Carbon Dioxide 25 mmol/L (22.0-30.0); Chol/HDL Ratio 4.7 (1-3.5); Cholesterol 324 mg/dl (140-200); Estimated Glomerular Filt Rate 55 ml/min (>60); GFR (African American) 66 ML/MIN (>60); Globulin 3.3 g/dL (1.3-3.2); Glucose 93 mg/dl (74-100); HDL Cholesterol 69 mg/dl (40-60); Triglycerides 135 mg/dl (30-150); VLDL Cholesterol 27 mg/dL (0-40)
[2023-08-05 19:32] LABS: C-Reactive Protein 1.6 mg/L (0-4)
[2023-08-05 19:38] LABS: Direct LDL Cholesterol 174.35 mg/dL (100-129)
[2023-08-05 19:42] LABS: 25-OH Vitamin D, Total 70.4 ng/mL (30-100)
[2023-08-05 19:57] LABS: Thyroid Stimulating Hormone 0.62 uIU/mL (0.465-4.68)
[2023-08-05 20:35] LABS: Erythrocyte Sedimentation Rate 22 mm/hr (0-30)
[2023-08-07 13:04] LABS: Anti-Centromere B Antibodies <0.2 AI (0.0-0.9); Anti-DNA (DS) Ab Qn <1 IU/mL (0-9); Anti-Jo-1 <0.2 AI (0.0-0.9); Anti-Smith Antibody 0.5 AI (0.0-0.9); Antichromatin Antibodies 4.2 AI (0.0-0.9); Antiscleroderma-70 Antibodies <0.2 AI (0.0-0.9); RNP Antibodies >8.0 AI (0.0-0.9); Sjogren's Anti-SS-A <0.2 AI (0.0-0.9); Sjogren's Anti-SS-B <0.2 AI (0.0-0.9)
[2023-08-07 15:22] LABS: Anti-Cyclic Citrullinated Pept 4 units (0-19); RA Latex Turbid. 10.5 IU/mL (<14.0)
== END 2023-08-05 23:59 | disposition home or self-care (01) ==
LOC: LAB.DROPOF 08-06 11:44
PROVIDERS: PCP Physician Assistant; Visit Provider Physician Assistant
DX: R53.83 Other fatigue (principal); I10 Essential (primary) hypertension; E55.9 Vitamin D deficiency, unspecified; M89.8X9 Other specified disorders of bone, unspecified site; E78.5 Hyperlipidemia, unspecified
CPT/HCPCS: 80050; 80053; 80061; 82306; 84443; 85025; 85651; 86140; 86200; 86225; 86235; 86431

== ENCOUNTER 2023-08-27 15:23 | Outpatient (CLI) | payer MEDICARE, SELFPAY ==
--- NOTE | 2023-08-27 15:24 | MR_ITS ---
FINAL REPORT TECHNIQUE: Multiplanar and multisequence MR imaging was obtained through the thoracic spine. CLINICAL HISTORY: THORACIC BACK PAIN COMPARISON: 01/18/2022 FINDINGS: There is normal alignment of the thoracic vertebral bodies in the sagittal plane. There are stable chronic compression deformities of T3 and T9. There is no bone marrow edema or pathologic marrow replacement. Signal intensity within the substance of the spinal cord is normal. No acute paraspinal abnormality. Left hydronephrosis is unchanged. No focal disc herniation is identified. There is mild multilevel degenerative disc disease. There is no central canal stenosis. IMPRESSION: Stable chronic compression deformities of T3 and T9. Left hydronephrosis, unchanged from previous. If this has never been evaluated with CT, consider CT. Reviewed, Interpreted and Dictated by Yesica Martinez MD Transcribed by Shira Galicia Authenticated and [facility]
== END 2023-08-27 23:59 | disposition home or self-care (01) ==
LOC: RAD 15:24
PROVIDERS: PCP Physician Assistant; Visit Provider Physician Assistant
DX: S22.000A Wedge compression fracture of unspecified thoracic vertebra, initial encounter for closed fracture (principal); M54.6 Pain in thoracic spine
CPT/HCPCS: 72146

== ENCOUNTER 2023-08-30 08:46 | Outpatient (CLI) | payer MEDICARE, SELFPAY ==
--- NOTE | 2023-08-30 08:46 | XR_ITS ---
FINAL REPORT TECHNIQUE: Bone densitometry calculations of the lumbar spine and left hip were obtained. CLINICAL HISTORY: OSTEOPENIA COMPARISON: None FINDINGS: Using L1-4, the bone mineral density of the spine is 1.158 g/cm2, corresponding to T-score of 1.0 and a Z score of 3.1. This is within the range of normal. Using the left hip, the bone mineral density of the femoral neck is 0.786 g/cm2, corresponding to a T-score of -1.3 and a Z-score of 0.2. This is within the range of osteopenia. NOTE: T-score: Standard deviation compared with peak bone mass of young adult mean. *Following the recommendations of the International Society of Bone densitometry, classification of hip BMD is based on the lower of two T-scores; total hip or femoral neck. IMPRESSION: 1. Bone mineral density of the lumbar spine within the range of normal. 2. Bone mineral density of the left femoral neck within the range of osteopenia. Reviewed, Interpreted and Dictated by Yesica Martinez MD Transcribed by Yana Betancourt Authenticated and [facility]
== END 2023-08-30 23:59 | disposition home or self-care (01) ==
LOC: RAD 08:46
PROVIDERS: PCP Physician Assistant; Visit Provider Physician Assistant
DX: Z78.0 Asymptomatic menopausal state (principal)
CPT/HCPCS: 77080

== ENCOUNTER 2023-09-03 12:29 | Outpatient (CLI) | payer MEDICARE, SELFPAY ==
[2023-09-03 13:05] LABS: Blood Urea Nitrogen 17 mg/dl (7-17); Estimated Glomerular Filt Rate 62 ml/min (>60); GFR (African American) 75 ML/MIN (>60)
== END 2023-09-03 23:59 | disposition home or self-care (01) ==
LOC: LAB 12:29
PROVIDERS: PCP Physician Assistant; Visit Provider Physician Assistant
DX: N13.30 Unspecified hydronephrosis (principal)
CPT/HCPCS: 36415; 82565; 84520

== ENCOUNTER 2023-09-03 12:44 | Emergency (ER) | payer MEDICARE, SELFPAY ==
[2023-09-03 12:52] VITALS: BMI 30.9
--- NOTE | 2023-09-03 12:53 | XR_ITS ---
FINAL REPORT CLINICAL HISTORY: Left pain and numbness FINDINGS: LEFT HIP: Two views of the left hip demonstrate no acute fracture or dislocation. Mild degenerative changes are seen in the left hip. The visualized bony structures are well aligned. No soft tissue abnormality is seen. IMPRESSION: No acute bony abnormality. Reviewed, Interpreted and Dictated by Marce Harrington MD Transcribed by Deisi Jaramillo Authenticated and . [facility]
[2023-09-03 13:40] VITALS: BP 143/73; PULSE 74; RESP 20; TEMP 36.8; O2SAT 99; BMI 30.7
--- NOTE | 2023-09-03 13:42 | EXP.UTC ---
Discharge Plan Disposition Patient Disposition: Home, Self-Care Condition: Good Prescriptions Prescriptions: New methylprednisolone 4 mg Tablets,Dose Pack 4 mg PO DIRECTED 6 Days Qty: 21 0RF Rx Instructions: Take 1 pack as directed for 6 days No Action fluticasone propionate 50 mcg/actuation spray,suspension 1 spray intranasal DAILY Qty: 16 3RF loratadine 10 mg tablet 10 mg PO DAILY Qty: 90 1RF famotidine 40 mg tablet 40 mg PO DAILY Qty: 30 2RF omeprazole 20 mg capsule,delayed release(DR/EC) 20 mg PO DAILY Qty: 90 3RF amlodipine 2.5 mg tablet See Rx Instructions .ROUTE .COMPLEX Qty: 90 0RF Dose Instruction: TAKE 1 TABLET BY MOUTH DAILY Rx Instructions: TAKE 1 TABLET BY MOUTH DAILY diltiazem HCl 300 mg capsule,extended release 24hr See Rx Instructions .ROUTE .COMPLEX Qty: 90 0RF Dose Instruction: TAKE 1 CAPSULE BY MOUTH EVERY DAY FOR HEART RATE Rx Instructions: TAKE 1 CAPSULE BY MOUTH EVERY DAY FOR HEART RATE lisinopril 20 mg tablet See Rx Instructions .ROUTE .COMPLEX Qty: 90 0RF Dose Instruction: TAKE 1 TABLET BY MOUTH DAILY FOR HIGH BLOOD PRESSURE Rx Instructions: TAKE 1 TABLET BY MOUTH DAILY FOR HIGH BLOOD PRESSURE ergocalciferol (vitamin D2) 1,250 mcg (50,000 unit) capsule 1,250 mcg PO WEEKLY Qty: 10 2RF cholecalciferol (vitamin D3) [Vitamin D3] 25 mcg (1,000 unit) capsule See Rx Instructions .ROUTE .COMPLEX Qty: 90 0RF Dose Instruction: TAKE 1 CAPSULE BY MOUTH ONCE DAILY FOR SUPPLEMENT Rx Instructions: TAKE 1 CAPSULE BY MOUTH ONCE DAILY FOR SUPPLEMENT atorvastatin [Lipitor] 10 mg tablet 10 mg PO HS Qty: 90 2RF lorazepam 1 mg tablet 1 mg PO BIDP PRN (Reason: anxiety) Qty: 60 0RF alendronate [Fosamax] 70 mg tablet 70 mg PO WEEKLY Qty: 5 2RF Referrals Follow up/Referrals: Dilma Pearson PA [Primary Care Provider] - See instructions Activity Restrictions/Add. Instructions Additional Instructions/Restrictions: Go home and rest. It would be best if you rested for the next few days too. No heavy lifting. No twisting. Take the oral medications as directed. Don't start the oral steroids (medrol dose pack) until tomorrow, since you had the shots in here today. Follow up with your regular doctor. GO TO THE ER FOR ANY WORSENING SYMPTOMS OR CONCERN, ESPECIALLY BOWEL OR BLADDER ISSUES, SADDLE AREA NUMBNESS, FEVER, ETC Clinical Impressions Clinical Impression: Left hip pain, Left sided sciatica Discharge ED Provider: Yeison Perez [facility] HPI General Stated complaint: L hip pain Time Seen by Provider: 09/03/23 13:42 History of Present Illness Provider Complaint: She states that she twisted and stood up 2 days ago and began having left lower back pain and left hip pain that radiates down her left leg. She denies any fall or trauma. Related Data Previous Rx's Medication Instructions Recorded loratadine 10 mg tablet 10 mg PO DAILY Allergy symptoms 03/07/22 #90 tabs famotidine 40 mg tablet 40 mg PO DAILY #30 tabs 09/21/22 omeprazole 20 mg capsule,delayed 20 mg PO DAILY #90 caps 02/22/23 release amlodipine 2.5 mg tablet See Rx Instructions .Route 05/24/23 .COMPLEX #90 tabs diltiazem HCl 300 mg See Rx Instructions .Route 05/24/23 capsule,extended release 24 hr .COMPLEX #90 caps lisinopril 20 mg tablet See Rx Instructions .Route 05/24/23 .COMPLEX #90 tabs ergocalciferol (vitamin D2) 1,250 1,250 mcg PO WEEKLY #10 caps 05/28/23 mcg (50,000 unit) capsule fluticasone propionate 50 1 spray intranasal DAILY allergies 06/03/23 mcg/actuation nasal #16 grams spray,suspension cholecalciferol (vitamin D3) 25 See Rx Instructions .Route 06/20/23 mcg (1,000 unit) capsule (Vitamin .COMPLEX #90 caps D3) atorvastatin 10 mg tablet (Lipitor) 10 mg PO HS #90 tabs 07/15/23 lorazepam 1 mg tablet 1 mg PO BIDP PRN anxiety #60 tabs 08/07/23 alendronate 70 mg tablet (Fosamax) 70 mg PO WEEKLY #5 tabs 08/30/23 methylprednisolone 4 mg tablets in 4 mg PO DIRECTED 6 days #21 tabs 09/03/23 a dose pack Allergies Allergy/AdvReac Type Severity Reaction Status Date / Time acetaminophen [From Tylox] Allergy Mild Rash Verified 08/05/23 10:27 cephalexin [From Keflex] Allergy Unknown Verified 08/05/23 10:27 codeine [CODEINE] Allergy Unknown DIFFICULTY Verified 08/05/23 10:27 BREATHING oxycodone [OXYCODONE] Allergy Unknown DIFFICULTY Verified 08/05/23 10:27 BREATIHNG sumatriptan [SUMATRIPTAN] Allergy Unknown STROKE Verified 08/05/23 10:27 SYMPTOMS PFSH PFSH Disclaimer: The information contained in this section may have been updated after the patient was seen, as this information can be updated by other users. Medical History Anterior uveitis Allergic rhinitis Dyspnea on exertion Sarcoidosis Lung nodule seen on imaging study Dyspnea on exertion REMA (obstructive sleep apnea) Mild to moderate REMA currently untreated due to difficulty with AutoPap Nocturnal headaches Enterocele Rectocele Midline cystocele Cystocele Vaginal vault prolapse Anxiety and depression Currently on fluoxetine, lorazepam with recurrent symptoms Urinary incontinence Allergic rhinitis GERD (gastroesophageal reflux disease) Hypertension Depression Daytime somnolence Surgical History History of umbilical hernia repair History of bilateral cataract extraction History of sinus surgery History of hand surgery History of lumbar surgery History of tonsillectomy History of hysterectomy History of section History of cholecystectomy H/O detached retina repair Family History Other Diabetes Hypertension Social History Smoking Status: Never smoker alcohol intake: never substance use type: denies use current occupational status: retired Travel in the last 8 weeks: None household members: spouse housing: house current occupational exposures/hazards: No caffeine: Yes ROS Obtained: Yes All systems reviewed & no additional complaints except as documented Constitutional Constitutional: Denies chills and Denies fever(s) Eyes Eyes: Denies eye discharge ENT Ears, Nose, Mouth, and Throat: Denies dizziness, Denies otalgia and Denies sore throat Cardiovascular Cardiovascular: Denies chest pain Respiratory Respiratory: Denies shortness of breath, Denies chest congestion, Denies cough, Denies stridor and Denies wheezing Gastrointestinal Gastrointestingal: Denies nausea or vomiting Genitourinary Female Genitourinary: Denies dysuria, Denies urinary frequency, Denies urinary incontinence, Denies urinary hesitancy and Denies urinary urgency Musculoskeletal Musculoskeletal: Reports as per HPI Integumentary/Breasts Skin/Breast: Denies rash Neurologic Neurologic: Denies dizziness and Denies paresthesias Allergic/Immunologic Allergic/Immunologic: Denies wheezing Physical Exam General General appearance: alert and in no apparent distress Head Head exam: atraumatic, normocephalic and normal inspection Eye Eye exam: Present normal appearance, PERRL and EOMI ENT ENT exam: Present normal exam, normal oropharynx, mucous membranes moist, TM's normal bilaterally and normal external ear exam Neck Neck exam: Present normal inspection, full ROM and trachea midline; Absent meningismus or lymphadenopathy Chest Chest inspection: Present normal inspection and symmetric chest wall rise; Absent tenderness Respiratory Respiratory exam: Present normal lung sounds bilaterally; Absent respiratory distress Cardiovascular Cardiovascular exam: Present regular rate and normal rhythm; Absent JVD Abdominal Exam Abdominal exam: Present soft and normal bowel sounds; Absent distention, tenderness or guarding Extremities Exam Extremities exam: Present normal inspection, full ROM and normal capillary refill; Absent calf tenderness Back Exam Back exam: Present normal inspection; Absent tenderness Neurological Exam Neurological exam: Present alert, oriented X3, CN II-XII intact, normal gait and reflexes normal; Absent motor sensory deficit Expanded Neurological Exam Cranial nerves: Normal: EOM function (II, III, IV, ), facial sensation (V), facial palsy (VII), gag reflex (IX), spinal accessory function (XI) and tongue deviation (XII) Cerebellar function: normal gait Motor strength - LUE: 5/5 Motor strength - RUE: 5/5 Motor strength - LLE: 5/5 Motor strength - RLE: 5/5 Sensory exam upper extremity: Normal: light touch and 2 point discrimination Sensory exam lower extremity: Normal: light touch and 2 point discrimination DTR: 2+: biceps (L), biceps (R), patellar (L), patellar (R), Achilles tendon (L) and Achilles tendon (R) Spinal cord function: Absent saddle anesthesia Psychiatric Psychiatric exam: Present normal affect and normal mood Skin Skin exam: Present warm, dry, intact and normal color Lymphatic Lymphatic Findings: no adenopathy Medical Decision Making Medical Records Medical records reviewed: No I reviewed the patient's medical records. Jesús Inquiry Pt receiving controlled substance: No Orders (Tests/Meds): ORDERS Category Date Time Status Hip XR left minimum 2 views [XR hip LT 2-3V w/pelvis] Exams 09/03/23 12:53 Taken Stat
[2023-09-03] MEDS: KETOROLAC 60MG/2ML VIAL 30 MG IM (13:55)
[2023-09-03] MEDS: DEXAMETHASONE 4MG/ML 1ML VIAL 8 MG IM (13:55)
[2023-09-03 14:10] VITALS: BP 143/73; PULSE 74; RESP 20; TEMP 36.8; O2SAT 99
== END 2023-09-03 14:12 | disposition home or self-care (01) ==
PROVIDERS: Emergency Provider Nurse Practitioner Family; PCP Physician Assistant
DX: M25.552 Pain in left hip (principal); M54.32 Sciatica, left side
CPT/HCPCS: 36415; 73502; 82565; 84520; 96372; 99212; 99214; G0463; J1100; J1885

== ENCOUNTER 2023-09-04 10:19 | Outpatient (CLI) | payer MEDICARE, SELFPAY ==
--- NOTE | 2023-09-04 10:20 | CT_ITS ---
FINAL REPORT TECHNIQUE: Axial images through the abdomen and pelvis were performed. This study was performed with techniques to keep radiation doses as low as reasonably achievable, (ALARA). Individualized dose reduction techniques using automated exposure control or adjustment of mA and/or kV according to the patient's size were employed. CLINICAL HISTORY: hydronephrosis COMPARISON: None FINDINGS: Abdomen: Lung bases are clear. Liver has an unremarkable CT appearance. The spleen, pancreas and adrenal glands are unremarkable. The gallbladder has been surgically resected. There is mild left hydronephrosis and hydroureter without an obstructing stone. There is likely an extrarenal pelvis on the left side as well. No focal renal mass is identified. No bowel obstruction or fluid collection is seen. No abdominal adenopathy is identified. Pelvis: The appendix is not visualized. Pelvic bowel loops are unremarkable. No fluid collection or adenopathy is seen. There is dilation of the left ureter to the level of the bladder, and a distal ureteral stricture is not excluded. IMPRESSION: Mild left hydronephrosis and hydroureter without an obstructing stone. The ureter is dilated to the level of the bladder, and a distal ureteral stricture is not excluded. Would suggest retrograde evaluation of the left ureter. Reviewed, Interpreted and Dictated by Marce Harrington MD Transcribed by Yana Betancourt Authenticated and [facility]
== END 2023-09-04 23:59 | disposition home or self-care (01) ==
LOC: RAD 10:20
PROVIDERS: PCP Physician Assistant; Visit Provider Physician Assistant
DX: N13.30 Unspecified hydronephrosis (principal)
CPT/HCPCS: 74178; Q9967

== ENCOUNTER 2023-09-16 10:52 | Outpatient (CLI) | payer MEDICARE, SELFPAY ==
--- NOTE | 2023-09-16 11:05 | XR_ITS ---
FINAL REPORT CLINICAL HISTORY: left leg pain after fall COMPARISON: None FINDINGS: LEFT FEMUR: 4 views of the left femur reveal moderate degenerative change of the left knee and hip. No acute bony abnormality is identified. No dislocation is noted. IMPRESSION: Moderate degenerative change of the left knee and hip without acute bony abnormality. Reviewed, Interpreted and Dictated by Alvaro Esquivel III, MD Transcribed by Yana Betancourt Authenticated and [facility]
== END 2023-09-16 23:59 | disposition home or self-care (01) ==
LOC: RAD 10:53
PROVIDERS: PCP Physician Assistant; Visit Provider Physician Assistant
DX: M79.605 Pain in left leg (principal)
CPT/HCPCS: 73552

== ENCOUNTER 2023-10-02 09:54 | Outpatient (CLI) | payer MEDICARE, SELFPAY ==
--- NOTE | 2023-10-02 09:55 | US_ITS ---
FINAL REPORT CLINICAL HISTORY: Urinary retention COMPARISON: None FINDINGS: ULTRASOUND BLADDER WITH POST VOID RESIDUAL Bladder volume was estimated based on 3 dimensional measurements postvoid. Bilateral ureteral jets are noted. There is a postvoid residual of 54 mL. IMPRESSION: Negligible postvoid residual.. Reviewed, Interpreted and Dictated by Andrea Thorne MD Transcribed by Kelly Daley Authenticated and [facility]
[2023-10-02 11:31] LABS: Blood Urea Nitrogen 20 mg/dl (7-17); Estimated Glomerular Filt Rate 62 ml/min (>60); GFR (African American) 75 ML/MIN (>60)
== END 2023-10-02 23:59 | disposition home or self-care (01) ==
LOC: RAD 09:55
PROVIDERS: PCP Physician Assistant; Visit Provider Urology
DX: R33.9 Retention of urine, unspecified (principal)
CPT/HCPCS: 36415; 76857; 82565; 84520

== ENCOUNTER 2023-10-08 09:18 | Outpatient (CLI) | payer MEDICARE, SELFPAY ==
--- NOTE | 2023-10-08 09:19 | XR_ITS ---
FINAL REPORT CLINICAL HISTORY: UTI FINDINGS: IVP HISTORY: urinary tract infection PROCEDURE: The patient was injected with 100 ml of Omnipaque-300. Overhead films were obtained. FINDINGS: The sheetrock applicator film is unremarkable. Postinjection films demonstrate prompt nephrograms bilaterally. The kidneys are normal in size and contour. There is no hydronephrosis. The imaged portions of the ureters are normal. The urinary bladder is unremarkable. IMPRESSION: No evidence of obstruction. Unremarkable IVP. Films reviewed , interpreted and dictated by Dr. Thorne. Transcribed by John Gomes PA-C. Reviewed, Interpreted and Dictated by Andrea Thorne MD Transcribed by DORCAS Allen Authenticated and [facility]
[2023-10-08] MEDS: IOPAMIDOL-370 (76%);100ML BOTTLE 75 ML IV (10:24)
[2023-10-08] MEDS: SODIUM CHLORIDE 0.9% 10ML SYR (RAD ONLY) 10 ML IV (10:24)
== END 2023-10-08 23:59 | disposition home or self-care (01) ==
LOC: RAD 09:19
PROVIDERS: PCP Physician Assistant; Visit Provider Urology
DX: R33.9 Retention of urine, unspecified (principal); N31.9 Neuromuscular dysfunction of bladder, unspecified
CPT/HCPCS: 74400; Q9967

== ENCOUNTER 2024-06-16 09:03 | Outpatient (CLI) | payer MEDICARE, SELFPAY ==
--- NOTE | 2024-06-16 09:06 | XR_ITS ---
FINAL REPORT TECHNIQUE: Bone densitometry calculations of the lumbar spine and left hip were obtained. CLINICAL HISTORY: SCREENING COMPARISON: None FINDINGS: Using L1-4, the bone mineral density of the spine is 1.101 g/cm2, corresponding to T-score of 0.5 and a Z score of 2.7. This is within the range of normal. Using the left hip, the bone mineral density of the femoral neck is 0.758 g/cm2, corresponding to a T-score of -1.5 and a Z-score of 0.1. This is within the range of osteopenia. Using the right hip, the bone mineral density of the femoral neck is 0.749 g/cm?, corresponding to a T-score of -0.9. This is within the range of normal. NOTE: T-score: Standard deviation compared with peak bone mass of young adult mean. *Following the recommendations of the International Society of Bone densitometry, classification of hip BMD is based on the lower of two T-scores; total hip or femoral neck. IMPRESSION: 1. Bone mineral density of the lumbar spine and right hip within the range of normal. 2. Bone mineral density of the left femoral neck within the range of osteopenia. Reviewed, Interpreted and Dictated by Yesica Martinez MD Transcribed by Yana Betancourt Authenticated and . [facility]
== END 2024-06-16 23:59 | disposition home or self-care (01) ==
LOC: RAD 09:04
PROVIDERS: PCP Physician Assistant; Visit Provider Physician Assistant
DX: M85.88 Other specified disorders of bone density and structure, other site (principal)
CPT/HCPCS: 77080